=== PATIENT | male | born 1965 | race Caucasian/White ===

== ENCOUNTER 2021-12-14 15:51 | Observation (INO) ==
[2021-12-14] MEDS ORDERED: SODIUM CHLORIDE 0.9% 1000ML 1,000 ML IV ONE (16:01)
[2021-12-14] MEDS ORDERED: ACETAMINOPHEN 1,000 MG/100 ML VIAL IV STA (16:33)
--- NOTE | 2021-12-14 16:33 | Emergency Department Note ---
Impression & Plan Syncope, IgA nephropathy, Transient global amnesia, HTN (hypertension) ED Provider Note NAME: TAYA ALVAREZ AGE: 56 SEX: M ARRIVES VIA: Ambulance INFORMANT: Patient , Ems ED PROVIDER(S): Tee Johnson MD CHIEF COMPLAINT: Syncope PLAN: Disposition: Admit MEDICAL DECISION MAKING: The patient is a pleasant 56-year-old gentleman with a past medical history of hypertension, CKD/IgA nephropathy per patient report who presents to the emergen cy department via EMS for syncopal episode began shortly prior to arrival in the setting of the patient feeling unwell this afternoon with headache and lightheadedness and so he came home from work early and decided to take a rest. His reports that he took his blood pressure and it was 160/80. He took it again shortly thereafter and it was 165/85. She reports that he was recently taken off lisinopril but did not have any other medication added and is worried because when he gets out of control blood pressure" he becomes very symptomatic. She then made the decision to call 911 and so they helped him get dressed and walked him out to the [facility] to sit on a chair but just before making it to the chair they report he lost consciousness and remained unresponsive until EMS arrived. The reports that his blood pressure at the time when he was not responding and it was in the 200s/100s. He eventually became alert. On arrival the patient is awake and alert answering questions. He reports he has no recollection of the entire day including getting up and going to work or what he did. He reports feeling okay this morning so he did go to work. His adds that the patient has had episodes like this in the past due to his blood pressure and recalls that they were told that he had "nonepileptic seizures" that were due to his high blood pressure. When I did explain what the diagnosis of nonepileptic seizures implies they did not seem aware that this was related to mood or psychogenic process and occurred with the patient necessarily being consciously aware. [facility] this particular history. On arrival patient is in no acute distress, afebrile with blood pressure 170s/100s and vital signs otherwise stable. He appears clinically dry. He has no focal neurologic deficits. He does exhibit some difficulty lifting his right leg which she reports is due to feeling achy and sore. Patient's then noted that with his prior episodes he would develop left-sided weakness. However I did clarify to her that it was his right leg that was problematic and so she admitted that she did not know what to make of that. However his difficulty appears to be more related to achiness than weakness. EKG without overt acute ischemia. Chest x-ray negative for acute cardiopulmonary process. WBC, H/H and platelets within normal limits. Chemistry without metabolic acidosis. Creatinine 1.6 within patient's prior range of values. Electrolytes without significant abnormality. LFTs are unremarkable. Troponin negative/undetectable. Covid-19 RNA, NAAT negative. CT head without contrast was negative for acute process. Upon reevaluation the patient did feel improved after IV fluid hydration and APAP. Blood pressure had also improved to the 140s/80s. Given the patient's syncopal episode with associated amnesia/question TGA they agree with plan for admission for further evaluation. Case was discussed with LOREN Preston hospitalist, who will evaluate the patient for admission. Triage Nursing notes reviewed and agree them. Prior medical records reviewed Vital Signs: reviewed and remarkable for hypertension. Differential diagnosis: Infection, dehydration, metabolic abnormality, hypo/hyperglycemia, electrolyte disturbance, anemia, hypoxia, cardiac sources, intracerebral event, toxicologic, neurologic, as well as other pathologies. ER treatment provided: See below. Diagnostics interpreted by me: ECG: Normal sinus rhythm, 63 bpm, no ectopy, no overt ST elevation or depression, QTC 4 3, QRS 102 Cardiac Monitoring: An order for continuous cardiac monitoring was placed and demonstrated normal sinus rhythm, 63 bpm, no ectopy. Laboratory studies: See below Imaging studies: See below Consultation(s): Case was discussed with LOREN Preston hospitalist, who will evaluate the patient for admission. HPI: The patient is a pleasant 56-year-old gentleman with a past medical history of hypertension, CKD/IgA nephropathy per patient report who presents to the emergency department via EMS for syncopal episode began shortly prior to arrival in the setting of the patient feeling unwell this afternoon with headache and lightheadedness and so he came home from work early and decided to take a rest. His reports that he took his blood pressure and it was 160/80. He took it again shortly thereafter and it was 165/85. She reports that he was recently taken off lisinopril but did not have any other medication added and is worried because when he gets out of control blood pressure" he becomes very symptomatic. She then made the decision to call 911 and so they helped him get dressed and walked him out to the front porch to sit on a chair but just before making it to the chair they report he lost consciousness and remained unresponsive until EMS arrived. The reports that his blood pressure at the time when he was not responding and it was in the 200s/100s. He eventually became alert. On arrival the patient is awake and alert answering questions. He reports he has no recollection of the entire day including getting up and going to work or what he did. He reports feeling okay this morning so he did go to work. His adds that the patient has had episodes like this in the past due to his blood pressure and recalls that they were told that he had "nonepileptic seizures" that were due to his high blood pressure. When I did explain what the diagnosis of nonepileptic seizures implies they did not seem aware that this was related to mood or psychogenic process and occurred with the patient necessarily being consciously aware. [facility] at this particular history. ROS: See above HPI for pertinent positives & negatives. A total of 10 systems reviewed and were otherwise negative. VITALS:See Below PHYSICAL EXAMINATION: GENERAL: Awake, alert, fatigued-appearing, in no distress HENT: Normocephalic, atraumatic. Oropharynx with dry mucous membranes and otherwise unremarkable. EYES: Normal conjunctiva. Sclera non-icteric. EOMI. No nystamgus. PEARRL. NECK: Supple. No nuchal rigidity. FROM. No JVD. RESPIRATORY: Clear to auscultation. CARDIAC: Regular rate, normal rhythm. Extremities warm and well perfused. Pulses equal. ABDOMEN: Soft, non-distended. No tenderness to palpation. No rebound or guarding. No masses. RECTAL: Deferred. MUSCULOSKELETAL: Chest examination reveals no tenderness. The back is symmetrical on inspection without obvious abnormality. There is no CVA tenderness to palpation. No joint edema. LOWER EXTREMITIES: Calves are equal size bilaterally and non-tender. No edema. No discoloration. NEURO: Normal sensorium. No sensory or motor deficits noted. 5/5 strength and SILT x 4 extremities. Cerebellar function intact including [id number], alternating palms, [id number]. SKIN: No rash or jaundice noted. 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 Other Information That Helps Us Care for You: No Feels Safe at Home: Yes Safety Concerns: Feels Safe At This Time Assistive Devices: Glasses Allergies Allergies Allergy/AdvReac Type Severity Reaction Status Date / Time No Known Allergies Allergy Unverified 12/14/21 16:25 Home Meds Home Medications Medication Instructions Recorded Confirmed amlodipine 10 mg tablet 10 mg PO DAILY 09/16/20 12/14/21 omega-3s 350 ma-[id number]-other 2 cap PO DAILY 11/03/21 12/14/21 [id number] oil 600 mg capsule (Fish Oil) Results & Data (ED) Vital Signs Vital Signs - 24 hr 12/14/21 15:39 12/14/21 16:02 12/14/21 18:06 Temperature 36.7 C Temperature Source Oral Pulse Rate 70 85 Pulse Rate [Apical] 70 66 Pulse Rhythm [Apical] Pulse Strength [Apical] Respiratory Rate 21 21 20 Respiratory Effort / Characteristics Non-Labored Respiratory Depth Normal Blood Pressure 171/113 H Blood Pressure [Right Arm] 171/113 H 153/94 H Blood Pressure Mean 132 Blood Pressure Mean [Right Arm] 132 113 Blood Pressure Position [Right Arm] Pulse Oximetry 97 100 98 Oxygen Delivery Method Room Air Room Air Sepsis Recent Fever Within 48 Hours No Sepsis New/Unexplained Change in Mental Status No Sepsis Action Taken by Nursing No Action Required 12/14/21 20:00 Temperature Temperature Source Pulse Rate Pulse Rate [Apical] 63 Pulse Rhythm [Apical] Regular Pulse Strength [Apical] Normal Respiratory Rate 16 Respiratory Effort / Characteristics Non-Labored Spontaneous Respiratory Depth Normal Blood Pressure Blood Pressure [Right Arm] 153/91 H Blood Pressure Mean Blood Pressure Mean [Right Arm] 111 Blood Pressure Position [Right Arm] Semi-fowlers Pulse Oximetry 94 Oxygen Delivery Method Room Air Sepsis Recent Fever Within 48 Hours Sepsis New/Unexplained Change in Mental Status Sepsis Action Taken by Nursing Laboratory Data Attestation: I reviewed the patient's lab results. Result diagrams: 12/14/21 16:28 12/14/21 16:28 Lab Results 12/14/21 12/14/21 12/14/21 Range/Units 16:28 16:28 16:43 WBC 7.79 (4.8-10.8) K/uL RBC 5.34 (4.7-6.1) M/uL Hgb 15.7 (14.0-18.0) g/dL Hct 46.0 (42-52) % MCV 86.1 (80-100) fL MCH 29.4 (25-34) pg MCHC 34.1 (32-36) g/dL RDW Std Deviation 43.0 (36.4-46.3) fL RDW Coeff of Dharmesh 13.8 (11.5-14.5) % Plt Count 316 (130-400) K/uL MPV 9.6 (7.4-10.4) fL Immature Gran % (Auto) 1.2 % Neut % (Auto) 59.5 % Lymph % (Auto) 23.5 % [place] % (Auto) 12.1 % Eos % (Auto) 3.2 % Baso % (Auto) 0.5 % Neut # (Auto) 4.64 (1.4-6.5) K/uL Lymph # (Auto) 1.83 (1.2-3.4) K/uL [place] # (Auto) 0.94 H (0.11-0.59) K/uL Eos # (Auto) 0.25 (0-0.5) K/uL Baso # (Auto) 0.04 (0-0.2) K/uL Immature Gran # (Auto) 0.09 H (0.00-0.02) K/uL Sodium 137 (136-145) mmol/L Potassium 3.9 (3.5-5.1) mmol/L Chloride 105 (98-107) mmol/L Carbon Dioxide 24 (21-32) mmol/L Anion Gap 8 (3-11) BUN 34 H (6-23) mg/dl Creatinine 1.65 H (0.6-1.4) mg/dl Est Cr Clr Drug Dosing 48.5 ml/min Est GFR ( Amer) 52.3 ml/min Est GFR (Non-Af Amer) 45.1 ml/min BUN/Creatinine Ratio 20.6 H (10-20) Glucose 81 (70-99(Fasting)) mg/dl Calcium 9.0 (8.5-10.1) mg/dl Phosphorus 2.3 L (2.5-4.9) mg/dl Magnesium 2.1 (1.7-2.4) mg/dl Total Bilirubin 0.4 (0.2-1.0) mg/dl AST 33 (13-39) U/L ALT 38 (7-52) U/L Alkaline Phosphatase 95 (34-104) U/L Troponin I < 0.03 (0-0.04) ng/ml Total Protein 7.9 (6.0-8.3) gm/dl Albumin 4.2 (3.4-5.0) gm/dl Globulin 3.7 (2.5-4.0) gm/dl Albumin/Globulin Ratio 1.1 (0.9-2) Urine Color Urine Appearance (Clear) Urine pH (4.5-7.5) Ur Specific [place] (1.000-1.030) Urine Protein (Negative) Urine Glucose (UA) (Negative) Urine Ketones (Negative) Urine Blood (Negative) Urine Nitrite (Negative) Urine Bilirubin (Negative) Urine Urobilinogen (Negative) Ur Leukocyte Esterase (Negative) Urine WBC (Auto) (0-5) /hpf Urine RBC (Auto) (0-4) /hpf U Hyaline Cast (Auto) (0-5) /lpf U Epithel Cells (Auto) (0-5) /lpf Urine Bacteria (Auto) (Negative) Ur Random Creatinine mg/dl U Random Total Protein (0-11.9) mg/dl Protein/Creatinin Ratio (0-0.2) SARS-CoV-2, RNA, NAAT NEGATIVE (NEGATIVE) 12/14/21 12/14/21 Range/Units 16:43 16:43 WBC (4.8-10.8) K/uL RBC (4.7-6.1) M/uL Hgb (14.0-18.0) g/dL Hct (42-52) % MCV (80-100) fL MCH (25-34) pg MCHC (32-36) g/dL RDW Std Deviation (36.4-46.3) fL RDW Coeff of Dharmesh (11.5-14.5) % Plt Count (130-400) K/uL MPV (7.4-10.4) fL Immature Gran % (Auto) % Neut % (Auto) % Lymph % (Auto) % [place] % (Auto) % Eos % (Auto) % Baso % (Auto) % Neut # (Auto) (1.4-6.5) K/uL Lymph # (Auto) (1.2-3.4) K/uL [place] # (Auto) (0.11-0.59) K/uL Eos # (Auto) (0-0.5) K/uL Baso # (Auto) (0-0.2) K/uL Immature Gran # (Auto) (0.00-0.02) K/uL Sodium (136-145) mmol/L Potassium (3.5-5.1) mmol/L Chloride (98-107) mmol/L Carbon Dioxide (21-32) mmol/L Anion Gap (3-11) BUN (6-23) mg/dl Creatinine (0.6-1.4) mg/dl Est Cr Clr Drug Dosing ml/min Est GFR ( Amer) ml/min Est GFR (Non-Af Amer) ml/min BUN/Creatinine Ratio (10-20) Glucose (70-99(Fasting)) mg/dl Calcium (8.5-10.1) mg/dl Phosphorus (2.5-4.9) mg/dl Magnesium (1.7-2.4) mg/dl Total Bilirubin (0.2-1.0) mg/dl AST (13-39) U/L ALT (7-52) U/L Alkaline Phosphatase (34-104) U/L Troponin I (0-0.04) ng/ml Total Protein (6.0-8.3) gm/dl Albumin (3.4-5.0) gm/dl Globulin (2.5-4.0) gm/dl Albumin/Globulin Ratio (0.9-2) Urine Color Yellow Urine Appearance Clear (Clear) Urine pH 6.0 (4.5-7.5) Ur Specific [place] 1.015 (1.000-1.030) Urine Protein 2+ H (Negative) Urine Glucose (UA) Negative (Negative) Urine Ketones Negative (Negative) Urine Blood Negative (Negative) Urine Nitrite Negative (Negative) Urine Bilirubin Negative (Negative) Urine Urobilinogen Negative (Negative) Ur Leukocyte Esterase Negative (Negative) Urine WBC (Auto) 0 (0-5) /hpf Urine RBC (Auto) 0-4 (0-4) /hpf U Hyaline Cast (Auto) 0 (0-5) /lpf U Epithel Cells (Auto) 0-5 (0-5) /lpf Urine Bacteria (Auto) Negative (Negative) Ur Random Creatinine 67.7 mg/dl U Random Total Protein 110.4 H (0-11.9) mg/dl Protein/Creatinin Ratio 1.6 H (0-0.2) SARS-CoV-2, RNA, NAAT (NEGATIVE) Administered Medications Olmesartan (Olmesartan Medoxomil 20 Mg Tab) 20 mg PO QAM NAHID Stop: 01/13/22 21:38 Last Admin: 12/14/21 22:12 Dose: 20 mg Documented by: [id number] Discontinued Medications Gadobutrol (Gadobutrol 65ml Vial) 9.5 ml IV ONCE ONE Stop: 12/14/21 23:37 Last Admin: 12/14/21 23:36 Dose: 9.5 ml Documented by: [id number] Sodium Chloride (Nss 1000ml) 1,000 mls @ 999 mls/hr IV .Q1H1M ONE Stop: 12/14/21 17:01 Last Infusion: 12/14/21 18:42 Dose: 0 mls/hr Documented by: [id number] Admin: 12/14/21 16:45 Dose: 999 mls/hr Documented by: [id number] Acetaminophen (Ofirmev) 1,000 mg in 100 mls @ 400 mls/hr IV NOW STA Stop: 12/14/21 16:47 Last Infusion: 12/14/21 18:42 Dose: 0 mls/hr Documented by: [id number] Admin: 12/14/21 16:45 Dose: 400 mls/hr Documented by: [id number] Imaging Data Radiologist's Impression: Chest X-Ray 12/14/21 16:02 XR chest 1V portable CLINICAL HISTORY: Atypical chest pain TECHNIQUE: Single frontal radiograph of the chest was obtained. Comparison: None available at the time of this dictation. FINDINGS: No lines and tubes are seen. The cardiomediastinal silhouette is normal. The lungs are clear. No evidence of pleural effusion or pneumothorax. IMPRESSION: No acute chest disease. ACT 112: Negative or not required by law. Electronically signed by: Flaco Moses M.D. 12/14/2021 4:[address] 12/14/21 16:33 CT OF THE HEAD WITHOUT CONTRAST CLINICAL HISTORY: syncope, TGA COMPARISON STUDY: Head CT April 30, 2018. CT DOSE: 638.56 mGycm TECHNIQUE: Helical axial images of the head were obtained without IV contrast. Automated exposure control was utilized for the study. A dose lowering technique was utilized adhering to the principles of ALARA. FINDINGS: No acute intracranial hemorrhage, midline shift or mass effect is present. The ventricular system is unremarkable. The basal cisterns are patent. No extra-axial collections are present. There are no findings to suggest acute dural sinus thrombosis or acute territorial infarct. No significant calvarial abnormalities are present. There is mild ethmoid sinus mucosal thickening. IMPRESSION: No acute intracranial findings. ACT 112: Negative or not required by law. Electronically signed by: Adolfo Aponte M.D. 12/14/2021 6:40 PM Discharge Plan Visit Data Chief Complaint: Syncope ED Provider: Tee Johnson Discharge Problem: Syncope, IgA nephropathy, Transient global amnesia, HTN (hypertension) Patient Disposition: Admitted As Inpatient Discharge Instructions Interventions: ED Discharge Assessment Last Done: 12/14/21 21:05 Discharge Problem: Syncope Qualifiers: Syncope type: unspecified Qualified Code(s): R55 - Syncope and collapse HTN (hypertension) Qualifiers: Hypertension type: unspecified Qualified Code(s): I10 - Essential (primary) hypertension
--- NOTE | 2021-12-14 16:39 | XRay Report ---
XR chest 1V portable CLINICAL HISTORY: Atypical chest pain TECHNIQUE: Single frontal radiograph of the chest was obtained. Comparison: None available at the time of this dictation. FINDINGS: No lines and tubes are seen. The cardiomediastinal silhouette is normal. The lungs are clear. No evid ence of pleural effusion or pneumothorax. IMPRESSION: No acute chest disease. ACT 112: Negative or not required by law. Electronically signed by: Flcao Moses M.D. 12/14/2021 4:37 PM
[2021-12-14 16:41] LABS: Basophils # (auto) 0.04 K/uL (0-0.2); Basophils % (auto) 0.5 %; Eosinophils # (auto) 0.25 K/uL (0-0.5); Eosinophils % (auto) 3.2 %; Hemoglobin 15.7 g/dL (14.0-18.0); Immature Granulocytes # (auto) 0.09 K/uL (0.00-0.02); Immature Granulocytes % (auto) 1.2 %; Lymphocytes # (auto) 1.83 K/uL (1.2-3.4); Lymphocytes % (auto) 23.5 %; Mean Corpuscular Hemoglobin 29.4 pg (25-34); Mean Corpuscular Hgb Conc 34.1 g/dL (32-36); Mean Corpuscular Volume 86.1 fL (80-100); Mean Platelet Volume 9.6 fL (7.4-10.4); Monocytes # (auto) 0.94 K/uL (0.11-0.59); Monocytes % (auto) 12.1 %; Neutrophils # (auto) 4.64 K/uL (1.4-6.5); Neutrophils % (auto) 59.5 %; Platelet Count 316 K/uL (130-400); RDW Coefficient of Variation 13.8 % (11.5-14.5); Red Blood Count 5.34 M/uL (4.7-6.1); White Blood Count 7.79 K/uL (4.8-10.8)
[2021-12-14 17:06] LABS: Troponin I < 0.03 ng/ml (0-0.04)
[2021-12-14 17:11] LABS: Alanine Aminotransferase 38 U/L (7-52); Albumin Globulin Ratio 1.1 (0.9-2); Albumin Level 4.2 gm/dl (3.4-5.0); Alkaline Phosphatase 95 U/L (34-104); Anion Gap 8 (3-11); Aspartate Aminotransferase 33 U/L (13-39); BUN Creatinine Ratio 20.6 (10-20); Bilirubin,Total 0.4 mg/dl (0.2-1.0); Blood Urea Nitrogen 34 mg/dl (6-23); Carbon Dioxide 24 mmol/L (21-32); Chloride 105 mmol/L (98-107); Creatinine Clr Calc Pharmacy 48.5 ml/min; Est GFR (African American) 52.3 ml/min; Est GFR (Non-African American) 45.1 ml/min; Globulin 3.7 gm/dl (2.5-4.0); Glucose 81 mg/dl (70-99(Fasting)); Magnesium 2.1 mg/dl (1.7-2.4); Phosphorus 2.3 mg/dl (2.5-4.9); Potassium 3.9 mmol/L (3.5-5.1); Sodium 137 mmol/L (136-145); Total Protein 7.9 gm/dl (6.0-8.3)
--- NOTE | 2021-12-14 18:41 | CT Scan Report ---
CT OF THE HEAD WITHOUT CONTRAST CLINICAL HISTORY: syncope, TGA COMPARISON STUDY: Head CT April 30, 2018. CT DOSE: 638.56 mGycm TECHNIQUE: Helical axial images of the head were obtained without IV contrast. Automated exposure con trol was utilized for the study. A dose lowering technique was utilized adhering to the principles o f ALARA. FINDINGS: No acute intracranial hemorrhage, midline shift or mass effect is present. The ventricular system is unremarkable. The basal cisterns are patent. No extra-axial collections are present. There are no findings to suggest acute dural sinus thrombosis or acute territorial infarct. No significant calvarial abnormalities are present. There is mild ethmoid sinus mucosal thickening. IMPRESSION: No acute intracranial findings. ACT 112: Negative or not required by law. Electronically signed by: Adolfo Aponte M.D. 12/14/2021 6:40 PM
--- NOTE | 2021-12-14 20:02 | History & Physical Report ---
Date of Service December 14, 2021 Assessment & Plan (1) Syncope: Plan: 56yo male with history of HTN, IgA nephropathy and CKD presenting with syncope, TGA and elevated blood pressures. Patient reports a syncopal event prior to arrival, thought to be secondary to his elevated blood pressure. Hypertensive in the ER, otherwise HD stable. EKG is unremarkable. No underlying heart disease. Question of "non-epileptic seizures" associated with elevated blood pressures in the past - history should be clarified with patient and spouse if able. Does not necessarily mean psychogenic nonepileptic seizures. Question if patient had something like PRES or seizure-like activity with elevated blood pressure in the past. Patient seems to be very sensitive to elevated blood pressure numbers. He is anxious about his values as well. Recently taken off Lisinopril. Given history of IgA nephropathy with proteinuria would benefit from treatment with TASIA-inhibitor or ARB if tolerated. Neurologically intact, however, patient still states that his head feels a bit "muffled". Question seizure rather than syncopal event. Patient is low risk for 30-day serious ADR from syncope based on Hungarian Syncope Risk Score (Score of 0) therefore does not need additional workup specifically for syncope at this time. -Admit to medical with telemetry -Neuro checks with GCS q4 (2) Transient global amnesia: Plan: Patient does not recall the events of today. ?Transient global amnesia - possibly post-ictal. 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 This resulted in a concussion and amnesia. He was unable to tell me of prior episodes that may have been associated with elevated blood pressure. Possibly post ictal phenomenon Neurological exam is within normal limits -Neuro checks q 4 -Check MRI Brain (3) HTN (hypertension): Plan: Patient with elevated blood pressure. As above, was previously on Lisinopril which was discontinued secondary to hyperkalemia of 6.2. Question of seizure or syncope secondary to elevated blood pressure -Continue Amlodipine for blood pressure as well as IgA nephropathy -Will initiate Olmesartan 20mg daily - 1st dose now. Less hyperkalemia associated with ARBs -Patient should have his labs repeated outpatient to ensure stable renal function and K -Clonidine 0.1mg po QID as needed for blood pressure >180/110 (4) IgA nephropathy: Plan: Stable renal function -Continue Amlodipine -Olmesartan as above -Check urine Protein and Cr -Patient has an appointment with Nephrology on 01/30/22 Plan: F/E/N - heplock. Electrolytes WNL. Low Na/Heart healthy diet as tolerated Ppx - low risk for DVT Code - Full per discussion with patient Dispo - Observation to medical with telemetry History of Present Illness Chief Complaint: syncope, transient global amnesia Primary Care Provider: Joselyn Vega PA-C Jeff Mae is a 56yo male with history of IgA Nephropathy and hypertension presenting after a syncopal episode as well as transient global amnesia. Patient states he was in his usual state of health today until this afternoon when he developed dull headache and lightheadedness causing him to come home from work early to rest. Blood pressure at that time elevated at 160/80, repeat was 165/85. They decided to call 911. Patient was walking out to the front [facility] to wait for the ambulance when he lost consciousness. He remained unresponsive until EMS arrived. Initial BP by EMS was 200s/100s. Patient slowly regained consciousness en route to [facility] but had no recollection of the day's events. He states that he clearly remembers yesterday but does not recall anything from today. He states that his head feels "muffled". reported to the ER attending that patient had an episode similar to this where he lost consciousness with elevated blood pressure and was told that he has "nonepileptic seizures" that were due to high blood pressure. Patient reports that his blood pressure is typically well controlled at home, 120's/80's. He was previously on Amlodipine as well as Lisinopril. However, he had an elevated potassium to 6.2 on bloodwork therefore his Lisinopril was discontinued approximately 2 weeks ago. Patient has been closely monitoring his blood pressure since and states it has been controlled until today. He has IgA nephropathy. Has an appointment with Nephrology on 01/30/22 Allergies Allergy/AdvReac Type Severity Reaction Status Date / Time No Known Allergies Allergy Unverified 12/14/21 16:25 Home Medications Medication Instructions Recorded Confirmed Type amlodipine 10 mg tablet 10 mg PO DAILY 09/16/20 12/14/21 History omega-3s 350 el-tsf-ifi-other 2 cap PO DAILY 11/03/21 12/14/21 History [id number] oil 600 mg capsule (Fish Oil) Past Med/Surg History Medical History (Updated 12/15/21 @ 00:08 by Marybeth Alcala DO) Chopra's disease HTN (hypertension) IgA nephropathy Surgical History H/O hernia repair S/P appendectomy Status post biopsy of kidney Social History Smoking Status: Never smoker Hx Alcohol Use: No Hx Substance Use: No Preferred Language: Yakut Communication Ability: Effective Clerical Administrative Assistant Required: No marital status: Current Living Situation: Spouse current occupational status: employed 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 Other Information That Helps Us Care for You: No Feels Safe at Home: Yes Safety Concerns: Feels Safe At This Time Assistive Devices: Glasses Review of Systems Review of Systems: All systems reviewed & are unremarkable except as noted in HPI & below Physical Exam Physical Exam: General: patient resting comfortably, NAD, non-toxic in appearance, AA&O x 4 Skin: warm, dry, intact, no rashes or lesions HEENT: NC/AT, PERRL, EOMI, anicteric sclera, conjunctiva without injection, external ear normal to inspection and nontender, nares patent, moist mucus membranes, dentition intact, no oropharyngeal lesions, neck supple, trachea midline, no LAD, no thyromegaly, no JVD Heart: +S1/S2, regular, no m/r/g Lungs: equal air entry bilaterally, no rales/rhonchi/wheezes Abd: +BS, soft, NT/ND, no masses/organomegaly/ascites Ext: warm, 2+ pulses in UE/LE bilaterally, no clubbing/cyanosis, trace edema of bilateral LE Neuro: AA&O x 4, speech clear and appropriate, no facial droop, CN II - XII grossly intact, sensation to light touch intact UE/LE bilaterally, MS 5/5 in UE/LE bilaterally, [id number] testing normal, gait not assessed Results & Data Results & Data ([place]) Vital Signs (Past 12 Hours) Vital Signs Temp Pulse Pulse Resp BP BP Pulse Ox 12/14/21 18:06 66 20 153/94 H 98 12/14/21 16:02 85 21 100 12/14/21 15:39 36.7 C 70 70 21 171/113 H 171/113 H 97 Laboratory Results Laboratory Results WBC 7.79 K/uL (4.8-10.8) 12/14/21 16:28 RBC 5.34 M/uL (4.7-6.1) 12/14/21 16:28 Hgb 15.7 g/dL (14.0-18.0) 12/14/21 16:28 Hct 46.0 % (42-52) 12/14/21 16:28 MCV 86.1 fL (80-100) 12/14/21 16:28 MCH 29.4 pg (25-34) 12/14/21 16:28 MCHC 34.1 g/dL (32-36) 12/14/21 16:28 RDW Std Deviation 43.0 fL (36.4-46.3) 12/14/21 16:28 RDW Coeff of Dharmesh 13.8 % (11.5-14.5) 12/14/21 16:28 Plt Count 316 K/uL (130-400) 12/14/21 16:28 MPV 9.6 fL (7.4-10.4) 12/14/21 16:28 Immature Gran % (Auto) 1.2 % 12/14/21 16:28 Neut % (Auto) 59.5 % 12/14/21 16:28 Lymph % (Auto) 23.5 % 12/14/21 16:28 [place] % (Auto) 12.1 % 12/14/21 16:28 Eos % (Auto) 3.2 % 12/14/21 16:28 Baso % (Auto) 0.5 % 12/14/21 16:28 Neut # (Auto) 4.64 K/uL (1.4-6.5) 12/14/21 16:28 Lymph # (Auto) 1.83 K/uL (1.2-3.4) 12/14/21 16:28 [place] # (Auto) 0.94 K/uL (0.11-0.59) H 12/14/21 16:28 Eos # (Auto) 0.25 K/uL (0-0.5) 12/14/21 16:28 Baso # (Auto) 0.04 K/uL (0-0.2) 12/14/21 16:28 Immature Gran # (Auto) 0.09 K/uL (0.00-0.02) H 12/14/21 16:28 Sodium 137 mmol/L (136-145) 12/14/21 16: Potassium 3.9 mmol/L (3.5-5.1) 12/14/21 16: Chloride 105 mmol/L (98-107) 12/14/21 16: Carbon Dioxide 24 mmol/L (21-32) 12/14/21 16: Anion Gap 8 (3-11) 12/14/21 16: BUN 34 mg/dl (6-23) H 12/14/21 16: Creatinine 1.65 mg/dl (0.6-1.4) H 12/14/21 16: Est Cr Clr Drug Dosing 48.5 ml/min 12/14/21 16: Est GFR ( Amer) 52.3 ml/min 12/14/21 16: Est GFR (Non-Af Amer) 45.1 ml/min 12/14/21 16: BUN/Creatinine Ratio 20.6 (10-20) H 12/14/21: Glucose 81 mg/dl (70-99(Fasting)) 12/14/21 16: Calcium 9.0 mg/dl (8.5-10.1) 12/14/21: Phosphorus 2.3 mg/dl (2.5-4.9) L 12/14/21: Magnesium 2.1 mg/dl (1.7-2.4) 12/14/21 16: Total Bilirubin 0.4 mg/dl (0.2-1.0) 12/14/21 16: AST 33 U/L (13-39) 12/14/21 16: ALT 38 U/L (7-52) 12/14/21 16: Alkaline Phosphatase 95 U/L (34-104) 12/14/21 16: Troponin I < 0.03 ng/ml (0-0.04) 12/14/21 16: Total Protein 7.9 gm/dl (6.0-8.3) 12/14/21 16:28 Albumin 4.2 gm/dl (3.4-5.0) 12/14/21 16:28 Globulin 3.7 gm/dl (2.5-4.0) 12/14/21 16:28 Albumin/Globulin Ratio 1.1 (0.9-2) 12/14/21 16:28 Urine Color Yellow 12/14/21 16:43 Urine Appearance Clear (Clear) 12/14/21 16:43 Urine pH 6.0 (4.5-7.5) 12/14/21 16:43 Ur Specific [place] 1.015 (1.000-1.030) 12/14/21 16:43 Urine Protein 2+ (Negative) H 12/14/21 16:43 Urine Glucose (UA) Negative (Negative) 12/14/21 16:43 Urine Ketones Negative (Negative) 12/14/21 16:43 Urine Blood Negative (Negative) 12/14/21 16:43 Urine Nitrite Negative (Negative) 12/14/21 16:43 Urine Bilirubin Negative (Negative) 12/14/21 16:43 Urine Urobilinogen Negative (Negative) 12/14/21 16:43 Ur Leukocyte Esterase Negative (Negative) 12/14/21 16:43 Urine WBC (Auto) 0 /hpf (0-5) 12/14/21 16:43 Urine RBC (Auto) 0-4 /hpf (0-4) 12/14/21 16:43 U Hyaline Cast (Auto) 0 /lpf (0-5) 12/14/21 16:43 U Epithel Cells (Auto) 0-5 /lpf (0-5) 12/14/21 16:43 Urine Bacteria (Auto) Negative (Negative) 12/14/21 16:43 Ur Random Creatinine 67.7 mg/dl 12/14/21 16:43 U Random Total Protein 110.4 mg/dl (0-11.9) H 12/14/21 16:43 Protein/Creatinin Ratio 1.6 (0-0.2) H 12/14/21 16:43 SARS-CoV-2, RNA, NAAT NEGATIVE (NEGATIVE) 12/14/21 16:43 Impressions Chest X-Ray 12/14/21 16:02 XR chest 1V portable CLINICAL HISTORY: Atypical chest pain TECHNIQUE: Single frontal radiograph of the chest was obtained. Comparison: None available at the time of this dictation. FINDINGS: No lines and tubes are seen. The cardiomediastinal silhouette is normal. The lungs are clear. No evidence of pleural effusion or pneumothorax. IMPRESSION: No acute chest disease. ACT 112: Negative or not required by law. Electronically signed by: Flaco Moses M.D. 12/14/2021 4:[address] 12/14/21 16:33 CT OF THE HEAD WITHOUT CONTRAST CLINICAL HISTORY: syncope, TGA COMPARISON STUDY: Head CT April 30, 2018. CT DOSE: 638.56 mGycm TECHNIQUE: Helical axial images of the head were obtained without IV contrast. Automated exposure control was utilized for the study. A dose lowering technique was utilized adhering to the principles of ALARA. FINDINGS: No acute intracranial hemorrhage, midline shift or mass effect is present. The ventricular system is unremarkable. The basal cisterns are patent. No extra-axial collections are present. There are no findings to suggest acute dural sinus thrombosis or acute territorial infarct. No significant calvarial abnormalities are present. There is mild ethmoid sinus mucosal thickening. IMPRESSION: No acute intracranial findings. ACT 112: Negative or not required by law. Electronically signed by: Adolfo Aponte M.D. 12/14/2021 6:40 PM ECG Additional Comments: NSR at 63, normal axis, ZE=365, SQL=257, FUk=694, no acute ischemic changes Code Status & VTE Plan VTE Prophylaxis Plan VTE Prophylaxis will be ordered: No PG Care Time/CCT Total # of Minutes Spent Total Time Spent with Patient: Total time spent is greater than 50% in coordination of care (as documented) at patient's floor/unit and/or counseling patient: Coding Level of Care Code INT OBSERVATION CARE 70M LVL 3 Diagnoses HTN (hypertension) I10 IgA nephropathy N02.8 Transient global amnesia G45.4 Syncope R55
[2021-12-14] MEDS ORDERED: ONDANSETRON INJ 2 MG/ML 2 ML VIAL IV PRN (21:39)
[2021-12-14] MEDS ORDERED: ACETAMINOPHEN 325 MG TAB PO PRN (21:39)
[2021-12-14] MEDS: OLMESARTAN MEDOXOMIL 20 MG TAB PO SCH (22:12)
[2021-12-14 22:52] LABS: Appearance Urine Clear (Clear); Bacteria Urine Automated Negative (Negative); Bilirubin Urine Negative (Negative); Blood Urine Negative (Negative); Cast Urine Automated 0 /lpf (0-5); Color Urine Yellow; Epithelial Cell Urine Auto 0-5 /lpf (0-5); Glucose Urine UA Negative (Negative); Ketones Urine Negative (Negative); Leukocyte Esterase Urine Negative (Negative); Nitrite Urine Negative (Negative); Protein Urine 2+ (Negative); RBC Urine Automated 0-4 /hpf (0-4); Specific Gravity Urine 1.015 (1.000-1.030); Urobilinogen Urine Negative (Negative); WBC Urine Automated 0 /hpf (0-5)
[2021-12-14 23:36] LABS: Creatinine Urine Random 67.7 mg/dl; Protein Creatinine Ratio Urine 1.6 (0-0.2); Total Protein Urine Random 110.4 mg/dl (0-11.9)
[2021-12-14] MEDS ORDERED: GADOBUTROL 65ML VIAL IV ONE (23:36)
[2021-12-15] MEDS ORDERED: cloNIDine HCL 0.1 MG TAB PO PRN (00:28)
--- NOTE | 2021-12-15 07:19 | Electrocardiogram Report ---
Test Reason : Blood Pressure : / mmHG Vent. Rate : 063 BPM Atrial Rate : 063 BPM P-R Int : 142 ms QRS Dur : 102 ms QT Int : 394 ms P-R-T Axes : 022 015 028 degrees QTc Int : 403 ms Poor data quality, interpretation may be adversely affected Normal sinus rhythm Normal ECG When compared with ECG of 30-APR-2018 14:49, No significant change was found Confirmed by Duke Shay ([id number]) on 12/15/2021 7:18:59 AM Referred By: Confirmed By:Duke Shay
--- NOTE | 2021-12-15 07:22 | Magnetic Resonance Report ---
MRI OF THE BRAIN COMBO CLINICAL HISTORY: Transient global amnesia. COMPARISON STUDY: CT of the brain dated 12/14/2021. TECHNIQUE: MRI of the brain was performed utilizing various T1 and T2-weighted sequences in the axial , sagittal, and coronal planes. Contrast-enhanced sequences were acquired following the administratio n of 9.5 cc of Gadavist. FINDINGS: Brain parenchyma: The brain parenchyma is normal in appearance. There is no hemorrhage or mass effect . There is no restricted diffusion to suggest acute ischemia. No enhancing mass lesion is identified on the postcontrast images. Perez-white matter differentiation is preserved. No extra-axial fluid sarita ection is seen. The cerebellar tonsils are normal in configuration. Ventricles, sulci, and cisterns: Normal in configuration. Pituitary and sella: Unremarkable. Intracranial vasculature: Normal flow voids are maintained at the skull base. Orbits: The bony orbits are grossly intact. Orbital contents are normal in appearance. Sinuses and mastoids: There is mild mucosal thickening within the ethmoid and maxillary sinuses. Trac e mucosal thickening is noted in the frontal and sphenoid sinuses. The mastoid air cells are clear. Calvarium: Unremarkable. Cervical cord: Partially visualized cervical spinal cord is normal in morphology and signal intensity . IMPRESSION: No intracranial abnormality is identified. ACT 112: Negative or not required by law. Electronically signed by: Asa Tellez M.D. 12/15/2021 7:20 AM
[2021-12-15 08:01] LABS: Basophils # (auto) 0.04 K/uL (0-0.2); Basophils % (auto) 0.6 %; Eosinophils % (auto) 4.6 %; Hematocrit (blood only) 45.3 % (42-52); Hemoglobin 15.4 g/dL (14.0-18.0); Immature Granulocytes # (auto) 0.07 K/uL (0.00-0.02); Immature Granulocytes % (auto) 1.1 %; Lymphocytes # (auto) 1.35 K/uL (1.2-3.4); Lymphocytes % (auto) 20.7 %; Mean Corpuscular Hemoglobin 29.4 pg (25-34); Mean Corpuscular Volume 86.5 fL (80-100); Mean Platelet Volume 9.5 fL (7.4-10.4); Monocytes # (auto) 0.94 K/uL (0.11-0.59); Monocytes % (auto) 14.4 %; Neutrophils # (auto) 3.83 K/uL (1.4-6.5); Neutrophils % (auto) 58.6 %; Platelet Count 321 K/uL (130-400); RDW Coefficient of Variation 13.9 % (11.5-14.5); RDW Standard Deviation 43.6 fL (36.4-46.3); Red Blood Count 5.24 M/uL (4.7-6.1); White Blood Count 6.53 K/uL (4.8-10.8)
[2021-12-15] MEDS: OLMESARTAN MEDOXOMIL 20 MG TAB PO SCH (08:01)
[2021-12-15 08:13] LABS: BUN Creatinine Ratio 17.5 (10-20); Calcium 8.7 mg/dl (8.5-10.1); Creatinine Clr Calc Pharmacy 54.5 ml/min; Est GFR (African American) 54.2 ml/min; Est GFR (Non-African American) 46.8 ml/min; Potassium 4.5 mmol/L (3.5-5.1)
[2021-12-15] MEDS ORDERED: amLODIPine BESYLATE 5 MG TAB PO SCH (09:00)
--- NOTE | 2021-12-15 10:37 | Nephrology Consultation ---
Date of Consultation December 15, 2021 Assessment & Plan (1) IgA nephropathy: (2) Hypertensive urgency: (3) Proteinuria: (4) Syncope: 56-year-old male with history of stage IIIB CKD secondary to IgA nephropathy, b/l cr 1.6-1.8, admitted with hypertensive urgency and syncope. Has moderate degree proteinuria but no hematuria. Renal function stable, electrolyte including potassium acceptable. Blood pressure remained elevated however improve slightly since admission. Overall otherwise asymptomatic. Elevated potassium was most likely secondary to Bactrim in addition to CKD and lisinopril as potassium has always been otherwise normal. -- as he has been tolerating lisinopril for many years and it has been controlling blood pressure well, recommend going back to lisinopril 10 mg daily. -- waiting on renal artery Doppler however unlikely to have any significant renal artery stenosis as renal function stable, recent blood pressure change was most likely due to stopping TASIA-inhibitor, no significant risk for atherosclerotic disease. -- discussed about the importance of following low potassium diet, if potassium again elevated on ARB, will consider starting on [place] or locale my in order to keep on ARB for blood pressure control,CKD and proteinuria. -- monitor renal function electrolyte daily, if renal function and potassium stays stable, blood pressure improve, possibly can be discharged tomorrow. Thank you for allowing me to participate in your patient's care. It was a pleasure to see Wayne History of Present Illness Reason for Consultation: stage IIIB CKD, hypertensive urgency. Attending Physician: Ruiz Mendez MD History of Present Illness Jeff Louise is a 56-year-old gentlemen with past medical history of stage IIIB CKD secondary to IgA nephropathy, hypertension, admitted to the hospital with hypertensive urgency and syncopal episode. Nephrology consult was requested for management of hypertensive urgency in the setting of advanced CKD, recent hyperkalemia and decision regarding continuing on TASIA-inhibitor/ ARB. EMR records are reviewed in detail during patient's visit. Wayne was brought to ER yesterday after an episode of syncope. Yesterday he developed dull headache and lightheadedness and noted BP elevated at 160/80 and decided to call 911 as his BP generally well controlled.While he was waiting for EMS he lost consciousness and remained unresponsive until EMS arrived. Initial BP by EMS was 200s/100s. Patient slowly regained consciousness en route to [facility] but had no recollection of the day's events In ER his systolic blood pressure in 170s which slowly improved and this morning systolic blood pressure staying around 145 to 150s. He was on amlodipine 10 and lisinopril 10 mg daily at home. Three weeks ago lab done with AR showed potassium 6.2 and lisinopril was stopped. Pror to that he was on Bactrim for 4 weeks for Epididymitis. Since then his blood pressure has been running high although prior to that his blood pressure has been always in good control. Since admission his potassium has been normal. He was started on Olmesartan 20 mg daily yesterday and clonidine p.r.n.. Previously he never had any problem with potassium. Since then has been following low-potassium diet. No shortness of breath, chest pain, headache or visual changes. MRI brain on admission was unremarkable. He reports voiding normally. Denies taking NSAIDs use. Tries to eat healthy and follow low-salt diet. Wayne was diagnosed with IgA nephropathy in 2006 by renal biopsy after he was noted to have hypertension and microscopic hematuria and elevated creatinine. Since then his renal function seems to be staying reasonably stable, baseline creatinine has been 1.6-1.8. Urinalysis with 2+ proteinuria, no microscopic hematuria and protein creatinine ratio was 1.6. CT abdomen pelvis in November 01 showed otherwise normal size kidney with right kidney 1.6 cm exophytic cyst. He has been on lisinopril 10 mg and fish well since his diagnosis. No family history of CKD, ESRD. Nonsmoker, does not drink alcohol. Retired , currently works different job. , lives with . Originally from [place] where he had the renal biopsy and diagnosis of IgA nephropathy, moved to [place] in 2019. Hypertension for many years, previously has been well controlled until recently when lisinopril was stopped. No history of diabetes, coronary artery disease. Overall he is asymptomatic this morning but concern. Has been voiding normally. Allergies Allergy/AdvReac Type Severity Reaction Status Date / Time No Known Allergies Allergy Unverified 12/14/21 16:25 Home Medications Medication Instructions Recorded Confirmed Type amlodipine 10 mg tablet 10 mg PO DAILY 09/16/20 12/14/21 History omega-3s 350 pm-mxb-muu-other 2 cap PO DAILY 11/03/21 12/14/21 History [id number] oil 600 mg capsule (Fish Oil) Patient History Medical History (Updated 12/15/21 @ 10:26 by Bernie Davis MD) Chopra's disease HTN (hypertension) Hypertensive urgency IgA nephropathy Proteinuria Surgical History H/O hernia repair S/P appendectomy Status post biopsy of kidney Social History Smoking Status: Never smoker Hx Alcohol Use: No Hx Substance Use: No Preferred Language: Haitian Communication Ability: Effective Pot Operator Required: No marital status: Current Living Situation: Spouse 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 Physical Exam Constitutional: WD/WN, vitals as above no acute distress Eyes: + anicteric sclerae ENMT: Ears: no external ear abnormality Nose: nasal mucous membranes not dry Neck: normal visual inspection Respiratory: Auscultation: lungs clear to auscultation bilaterally Cardiovascular: Rate/Rhythm: regular rate and regular rhythm Heart Sounds: normal S1 and normal S2 Extremities: no edema Gastrointestinal (Abdomen): Inspection/Auscultation: abdomen normal to inspection and normal bowel sounds Percussion/Palpation: abdomen soft; abdomen nontender Musculoskeletal: Extremities: extremities normal to inspection Skin: no rashes Neurologic: no focal motor deficits Psychiatric: Orientation: alert and oriented x 3 Affect: euthymic affect Results & Data ([facility]) Vital Signs (Past 12 Hours) Vital Signs Temp Pulse Pulse Resp BP Pulse Ox 12/15/21 08:23 62 12/15/21 08:06 36.4 C L 57 L 20 155/87 H 97 12/15/21 03:40 36.8 C 61 16 127/78 96 12/14/21 23:00 72 PG Care Time/CCT Total # of Minutes Spent Total Time Spent with Patient: Total time spent is greater than 50% in coordination of care (as documented) at patient's floor/unit and/or counseling patient: Coding Level of Care Code 69769 Initial Inpt Care Lvl 3 Diagnoses IgA nephropathy N02.8 Hypertensive urgency I16.0 Proteinuria R80.9 Syncope R55 Syncope type: unspecified (1) Syncope Syncope type: unspecified Qualified Code(s): R55 - Syncope and collapse
--- NOTE | 2021-12-15 11:23 | Ultrasound Report ---
US duplex renal artery CLINICAL HISTORY: CKD, hypertension COMPARISON STUDY: CT of the abdomen and pelvis November 02, 2021. TECHNIQUE: Color and duplex Doppler sonography of the abdominal aorta and bilateral renal arteries wa s performed. FINDINGS: There is no hydronephrosis. Incidental note is made of a 1.6 cm cyst within the upper pole of the right kidney. Both kidneys measure 10.2 cm in maximal sagittal dimension. Peak systolic veloci ty within the abdominal aorta was 82 cm/s. Peak systolic velocity within the right renal artery was 1 34 cm/s. Peak systolic velocity within the left renal artery was 95 cm/s. Both ureteral veins were pa tent. IMPRESSION: No sonographic evidence of renal artery stenosis. ACT 112: Negative or not required by law. Electronically signed by: Adolfo Aponte M.D. 12/15/2021 11:21 AM
[2021-12-15 12:17] VITALS: TEMP 98.4; O2SAT 96
[2021-12-15 14:02] VITALS: BP 153/91; PULSE 63
--- NOTE | 2021-12-15 15:07 | Discharge Summary ---
Date of Service December 15, 2021 Admission HPI Per Admitting Provider Jeff Mae is a 56yo male with history of IgA Nephropathy and hypertension presenting after a syncopal episode as well as transient global amnesia. Patient states he was in his usual state of health today until this afternoon when he developed dull headache and lightheadedness causing him to come home from work early to rest. Blood pressure at that time elevated at 160/80, repeat was 165/85. They decided to call 911. Patient was walking out to the front porch to wait for the ambulance when he lost consciousness. He remained unresponsive until EMS arrived. Initial BP by EMS was 200s/100s. Patient slowly regained consciousness en route to [facility] but had no recollection of the day's events. He states that he clearly remembers yesterday but does not recall anything from today. He states that his head feels "muffled". reported to the ER attending that patient had an episode similar to this where he lost consciousness with elevated blood pressure and was told that he has "nonepileptic seizures" that were due to high blood pressure. Patient reports that his blood pressure is typically well controlled at home, 120's/80's. He was previously on Amlodipine as well as Lisinopril. However, he had an elevated potassium to 6.2 on bloodwork therefore his Lisinopril was discontinued approximately 2 weeks ago. Patient has been closely monitoring his blood pressure since and states it has been controlled until today. He has IgA nephropathy. Has an appointment with Nephrology on 01/30/22 Principal Diagnosis Hypertension Syncope Discharge Exam Constitutional WD/WN, vitals as above Eyes EOM intact bilaterally; no conjunctival abnormality ENMT external ear and nose normal, oropharynx normal Neck trachea midline, no thyromegaly normal visual inspection Respiratory normal respiratory effort, lungs clear to auscultation no respiratory distress Cardiovascular RRR, no murmur, no edema Gastrointestinal (Abdomen) Inspection/Auscultation: abdomen normal to inspection; abdomen not distended Musculoskeletal no cyanosis or clubbing, extremities motor strength 5/5 Skin no rashes, warm and dry Neurologic moves all extremities and awake Psychiatric Orientation: alert, oriented to person and cooperative Discharge Data Allergies Allergy/AdvReac Type Severity Reaction Status Date / Time No Known Allergies Allergy Unverified 12/14/21 16:25 Consultations 12/14/21 18:55 ED Decision to Admit Stat 12/15/21 09:39 Consult Nephrology Routine Ordered Studies 12/14/21 16:33 CT head/brain wo con Stat 12/14/21 21:39 MR brain wo/w con Routine 12/15/21 09:30 US duplex renal artery Routine Hospital Course (1) Syncope: 56yo male with history of HTN, IgA nephropathy and CKD presenting with syncope, TGA and elevated blood pressures. Patient reports a syncopal event prior to arrival, thought to be secondary to his elevated blood pressure. Hypertensive in the ER, otherwise HD stable. EKG is unremarkable. No underlying heart disease. Neurologically intact, however, patient still states that his head feels a bit "muffled". Patient is low risk for 30-day serious ADR from syncope based on [place] Syncope Risk Score (Score of 0) therefore does not need additional workup specifically for syncope at this time. - Admit to medical with telemetry -> No events - MRI brain without any abnormalities. (2) Transient global amnesia: Patient does not recall the events of today. ?Transient global amnesia - possibly post-ictal. 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 This resulted in a concussion and amnesia. He was unable to tell me of prior episodes that may have been associated with elevated blood pressure. - Normal MRI brain as above. Still did not recall events well from yesterday, but no further amnesia going forward. (3) HTN (hypertension): Patient with elevated blood pressure. Was previously on lisinopril which was discontinued secondary to hyperkalemia of 6.2. However, he was also on Bactrim for 2 weeks from urology, so nephrology felt that lisinopril was safe. - Renal u/s on 12/15 was normal. No LORRIE. - Continue Amlodipine for blood pressure as well as IgA nephropathy - Restart lisinopril 10 mg PO HS per nephrology. (4) IgA nephropathy: Stable renal function -Continue Amlodipine - Lisinopril as above -Patient has an appointment with Nephrology on 01/30/22 -> Encouraged to keep that appointment. Total Time Total Time Spent Total Time Spent (In Minutes): 35 Discharge Plan Discharge Items Patient Disposition: Home - Self-Care Reason For Visit: TRANSIENT GLOBAL AMNESIA Discharge Diagnosis: High blood pressure and passing out Activity: Resume your previous activity Non-emergency contact: Primary Care Provider Call non-emergency contact if: your symptoms worsen Follow-up/Referrals: Joselyn Vega PA-C [Primary Care Provider] - Diet: Dialysis Renal and Heart Healthy Addtl Attending Provider Instructions: Mr. Mae, You were admitted to the hospital with high blood pressure and an episode of passing out. We think your lisinopril is a really good blood pressure medication because it is a great one for your kidney issues. We think the reason your potassium went so high is because you were also on the Bactrim which can raise potassium. Now that you are off this, we can safely restart your lisinopril. Please take your lisinopril 10 mg every evening before bedtime. When you take your medication at bed, it mirrors your usual high-low stress hormones and better controls your blood pressure. Take your next dose of lisinopril TOMORROW evening before bedtime. You do not need take a dose tonight as you had your morning medications. Please follow up with Dr. Davis at your appointment time to see how you are doing. Pending Studies at Discharge: No Stand-Alone Forms: My [facility], Smoking Cessation Medications and DC Order Prescriptions: New lisinopril 10 mg tablet 10 mg PO HS Qty: 30 RF: 0 Continued amlodipine 10 mg tablet 10 mg PO DAILY RF: 0 Fish Oil 350-600 mg Capsule 2 cap PO DAILY RF: 0 Discharge Orders: Discharge Order (Routine); Ordered 12/15/21 Ordered By: Ruiz Mendez Admission Data Admit Date/Time: 12/14/21 20:01 Attending Provider: Ruiz Mendez Admit Provider: Marybeth Alcala Primary Care Provider: Joselyn Vega Other Providers: Ruiz Mendez ; [facility] ; Bernie Davis Other Interventions: Discharge Summary Assessment (RN) Last Done: 12/15/21 14:00 Coding Level of Care Code 53122 OBS Care - Discharge Diagnoses Syncope R55 Transient global amnesia G45.4 HTN (hypertension) I10 Hypertension type: unspecified IgA nephropathy N02.8
== END 2021-12-15 15:16 | disposition home or self-care (01) ==
LOC: ED 15:51 → 2N 15:51 → SUATTDRO 20:01 → 2N 21:05

== ENCOUNTER 2025-01-17 18:19 | Inpatient (IN) ==
--- NOTE | 2025-01-17 18:27 | Emergency Department Note ---
Impression & Plan Syncope, Muscle spasms of neck, Eye muscle twitches, HTN (hypertension) ED Provider Note NAME: TAYA ALVAREZ AGE: 59 SEX: M : 1965 ARRIVES VIA: Ambulance INFORMANT: Patient ED PROVIDER(S): Jared Lemus DO CHIEF COMPLAINT: Syncope, twitching of the eyes, spasms of the neck HPI: Patient is a 59-year-old male who presents ER for syncopal episode. He has a past medical history of IgA nephropathy, TGA and stage III kidney disease who presents to the ER for syncopal episode which lasted for about 1/2-hour. Patient has been having spasms of his bilateral eyes and of his neck. He notes this has improved slightly since being seen here. He followed up with ophthalmology several times. He denies any head pain or loss of vision but notes that he is has trouble opening his eyes. No weakness or numbness in the arms or legs. No chest pain or shortness of breath. No dysuria, urgency, or frequency. No other exacerbating or remitting factors. ADDITIONAL HISTORY OBTAINED: Per HPI Chronic Medical/Social Conditions Affecting Care: Per HPI PAST MEDICAL HISTORY:See Below PAST SURGICAL HISTORY:See Below FAMILY HISTORY:See Below SOCIAL HISTORY:See Below HOME MEDICATIONS:See Below ALLERGIES:See Below VITALS:See Below PHYSICAL EXAMINATION: GENERAL: Sitting up in bed, alert, intermittent twitching of his left neck, mild distress, EYE EXAM: normal conjunctiva. PERRL and EOM's grossly intact, persistent twitching of the bilateral eyelids OROPHARYNX: no exudate, no erythema, lips, buccal mucosa, and tongue normal and mucous membranes are moist NECK: supple, no nuchal rigidity, no adenopathy, non-tender LUNGS: Clear to auscultation. Normal chest wall mechanics HEART: no murmurs, S1 normal and S2 normal ABDOMEN: abdomen soft, non-tender, normo-active bowel sounds, no masses, no rebound or guarding. BACK: Back is symmetrical on inspection and there is no deformity, no midline tenderness, no CVA tenderness. SKIN: no rashes and no bruising UPPER EXTREMITIES: upper extremities are grossly normal. LOWER EXTREMITIES: No pitting edema. NEURO EXAM: Normal sensorium, cranial nerves II-XII intact, normal speech, no weakness of arms, no weakness of legs. No drift. Unable to perform [id number]. gross sensation intact. MEDICAL DECISION MAKING: Patient is a 59-year-old male who presents ER for the above-stated complaint. IV was established blood work was obtained. Labs show no significant leukocytosis or anemia. BMP with a creatinine of 2 fairly consistent with previous. LFTs and bilirubin were unremarkable. Lipase is normal. UA was clean. Chest x-ray was negative. Patient was completely neurologically intact. With Ativan twitching his neck improved and he was able to open his eyes. Unclear the syncopal calls but did elect to discuss with the hospitalist overnight for further observation secondary to a 20 to 30-minute syncopal event. EKG was reassuring. Patient has CT done within the past week for the same symptoms. Will not repeat. No head trauma. Consults/Care Managements Discussions: Per [facility] Triage Nursing notes reviewed. Limited review of prior medical records performed Vital Signs: reviewed and remarkable for no significant abnormalities Differential diagnosis: Differential diagnosis includes etiologies such as vasovagal event, infection, hypoglycemia, electrolyte abnormalities, cardiac sources, intracerebral event, toxicologic, neurologic, as well as others were entertained. ER treatment provided: See below Diagnostics interpreted by me include EKG and cardiac monitoring as listed below: -Cardiac Monitoring: An order was placed for continuous cardiac monitoring. The monitor shows a rate of 80 with sinus rhythm. -ECG: Sinus rhythm rate 80 Normal axis No PVCs QTc 431 -Laboratory studies:Interpreted by me as stated above in MDM and shown below. Imaging studies: Xrays: As interpreted by me: Portable AP upright 1 view of the chest shows no focal infiltrate CTs show: none Procedures:none Critical Care: None Past Med/Surg History Problem List (Updated 01/17/25 @ 23:58 by Jared Lemus DO) Eye muscle twitches (Acute) Muscle spasms of neck (Acute) Recurrent episodes of unresponsiveness Spasm eyelid (Acute) Muscle spasms of neck (Acute) Medial meniscus tear Left knee pain Varicocele Lower urinary tract symptoms Gout Vitamin D deficiency Stage 3b chronic kidney disease Pelvic pain in male Proteinuria Syncope (Acute) Transient global amnesia (Acute) IgA nephropathy (Acute) Scrotal pain Testicular/scrotal pain Chopra's disease (Chronic) HTN (hypertension) (Chronic) Medical History Chopra's disease Eye inflammation bilateral eyes, [facility] [place] [facility] and "slowly getting better" GERD (gastroesophageal reflux disease) controlled, stable per pt History of anesthesia reaction difficulty waking/slow to wake up. no issues with knee arthroscopy in 2023 at [facility] History of head injury (2016) transferred to [facility], no surgery, caused dizziness for a few years after injury but not current History of syncope intermittent per patient and -last episode 07/2023-unknown cause-patient and attribute to when HTN is difficult to control History of TIA (transient ischemic attack) (2005) no deficits Hx of gout Hypertension [facility], unsure why, denies follow up IgA nephropathy Prediabetes using farxiga for kidney protection Sleep-disordered breathing snoring and occasional witnessed apneas Stage 3b chronic kidney disease follows with DR Davis Testicular pain Follows with Dr Ward and Dr Davis Surgical History H/O hernia repair bilateral History of esophagogastroduodenoscopy (EGD) Hx of colonoscopy (2021) S/P appendectomy S/P right knee arthroscopy Status post biopsy of kidney 2004 - with IgA Nephropathy Family History Other No family history of adverse response to anesthesia Social History Smoking Status: Never smoker Tobacco Type: Cigars Cigarettes Per Day: "occasionally has a cigar" - advised on npo policy; Second Hand Exposure: No; Do You Dip or Chew Tobacco: No; Hx Alcohol Use: Yes Alcohol type: wine Hx Substance Use: No Preferred Language: Angolan Communication Ability: Effective Visual Impairment: No Limitations Hearing Ability: Normal [place] Gauger Required: No Beliefs That Will Affect Care: None marital status: Current Living Situation: Spouse and Family current occupational status: employed 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 Other Information That Helps Us Care for You: No Feels Safe at Home: Yes Safety Concerns: Feels Safe At This Time Diet: regular caffeine: Yes Physical Activity Frequency: Does not Exercise Seatbelt Use: always Do you think of yourself as: straight/heterosexual Gender Identity: Male Assistive Devices: Hospital Bed Allergies Allergies Allergy/AdvReac Type Severity Reaction Status Date / Time NSAIDS (Non-Steroidal AdvReac Intermediate Due to Verified 01/17/25 19:02 Anti-Inflamma patient Kidney disease- not supposed to take Home Meds Home Medications Medication Instructions Recorded Confirmed amitriptyline 10 mg tablet 10 mg PO HS 12/06/22 01/17/25 famotidine 20 mg tablet 20 mg PO HS 02/06/24 01/17/25 clonidine HCl 0.1 mg tablet 0.1 mg PO QAM 02/11/24 01/17/25 cholecalciferol (vitamin D3) 25 50 mcg PO QAM 03/20/24 01/17/25 mcg (1,000 unit) capsule (Vitamin D3) amlodipine 5 mg tablet 5 mg PO QPM 11/18/24 01/17/25 calcium 600 mg (as 1 tab PO QAM 12/22/24 01/17/25 carbonate)-vitamin D3 5 mcg (200 unit) tablet dapagliflozin propanediol 10 mg 10 mg PO QAM 12/22/24 01/17/25 tablet (Farxiga) lisinopril 40 mg tablet (Zestril) 40 mg PO QAM 12/22/24 01/17/25 omega-3 fatty acids 1,000 mg 2,000 mg PO BID 01/17/25 01/17/25 capsule Previous Rx's Medication Instructions Recorded ondansetron 4 mg disintegrating 4 mg PO Q6H PRN nausea and 03/20/24 tablet vomiting #10 tabs furosemide 20 mg tablet 20 mg PO Q OTHER DAY #17 tabs 11/10/24 allopurinol 300 mg tablet 300 mg PO QAM #90 tabs 01/05/25 diazepam 2 mg tablet (Valium) 2 mg PO BID PRN anxiety #10 tabs 01/09/25 Results & Data (ED) Vital Signs Vital Signs - 24 hr 01/17/25 18:26 01/17/25 18:26 01/17/25 18:29 Temperature 36.9 C Temperature Source Oral Pulse Rate 79 83 Pulse Rate [Right Finger] Pulse Rate from SpO2 Sensor Pulse Rhythm Regular Pulse Strength Normal Respiratory Rate 19 Respiratory Effort / Characteristics Non-Labored Spontaneous Respiratory Depth Normal Respiratory Pattern Regular Blood Pressure 144/87 H Blood Pressure [Right Arm] Blood Pressure Mean 106 Blood Pressure Mean [Right Arm] Blood Pressure Position Lying Blood Pressure Position [Right Arm] Pulse Oximetry 99 99 Oxygen Delivery Method Room Air Room Air Sepsis Recent Fever Within 48 Hours No Sepsis New/Unexplained Change in Mental Status No Sepsis Action Taken by Nursing No Action Required 01/17/25 18:30 01/17/25 18:30 01/17/25 18:30 Temperature Temperature Source Pulse Rate Pulse Rate [Right Finger] Pulse Rate from SpO2 Sensor Pulse Rhythm Pulse Strength Respiratory Rate Respiratory Effort / Characteristics Respiratory Depth Respiratory Pattern Blood Pressure 135/89 135/89 135/89 Blood Pressure [Right Arm] Blood Pressure Mean 104 104 104 Blood Pressure Mean [Right Arm] Blood Pressure Position Blood Pressure Position [Right Arm] Pulse Oximetry Oxygen Delivery Method Sepsis Recent Fever Within 48 Hours Sepsis New/Unexplained Change in Mental Status Sepsis Action Taken by Nursing 01/17/25 18:30 01/17/25 18:31 01/17/25 18:51 Temperature Temperature Source Pulse Rate 87 90 Pulse Rate [Right Finger] Pulse Rate from SpO2 Sensor 86 90 Pulse Rhythm Pulse Strength Respiratory Rate 18 16 Respiratory Effort / Characteristics Respiratory Depth Respiratory Pattern Blood Pressure Blood Pressure [Right Arm] Blood Pressure Mean Blood Pressure Mean [Right Arm] Blood Pressure Position Blood Pressure Position [Right Arm] Pulse Oximetry 94 94 Oxygen Delivery Method Room Air Sepsis Recent Fever Within 48 Hours Sepsis New/Unexplained Change in Mental Status Sepsis Action Taken by Nursing 01/17/25 19:00 01/17/25 19:00 01/17/25 19:12 Temperature 36.6 C Temperature Source Temporal Artery Scan Pulse Rate 91 H Pulse Rate [Right Finger] 89 Pulse Rate from SpO2 Sensor 91 H Pulse Rhythm Pulse Strength Respiratory Rate 23 18 Respiratory Effort / Characteristics Non-Labored Spontaneous Respiratory Depth Normal Respiratory Pattern Regular Blood Pressure 149/93 H Blood Pressure [Right Arm] 149/93 H Blood Pressure Mean 111 Blood Pressure Mean [Right Arm] 111 Blood Pressure Position Blood Pressure Position [Right Arm] Sitting Pulse Oximetry 94 91 Oxygen Delivery Method Room Air Sepsis Recent Fever Within 48 Hours Sepsis New/Unexplained Change in Mental Status Sepsis Action Taken by Nursing 01/17/25 19:12 01/17/25 19:21 01/17/25 19:30 Temperature Temperature Source Pulse Rate 90 91 H Pulse Rate [Right Finger] Pulse Rate from SpO2 Sensor 92 H 90 Pulse Rhythm Pulse Strength Respiratory Rate 25 H 23 Respiratory Effort / Characteristics Respiratory Depth Respiratory Pattern Blood Pressure 126/89 Blood Pressure [Right Arm] Blood Pressure Mean 97 Blood Pressure Mean [Right Arm] Blood Pressure Position Blood Pressure Position [Right Arm] Pulse Oximetry 86 L 91 Oxygen Delivery Method Sepsis Recent Fever Within 48 Hours Sepsis New/Unexplained Change in Mental Status Sepsis Action Taken by Nursing 01/17/25 19:30 01/17/25 19:33 01/17/25 19:51 Temperature Temperature Source Pulse Rate 92 H 93 H Pulse Rate [Right Finger] Pulse Rate from SpO2 Sensor 92 H 92 H Pulse Rhythm Pulse Strength Respiratory Rate 27 H 26 H Respiratory Effort / Characteristics Respiratory Depth Respiratory Pattern Blood Pressure 126/89 Blood Pressure [Right Arm] Blood Pressure Mean 97 Blood Pressure Mean [Right Arm] Blood Pressure Position Blood Pressure Position [Right Arm] Pulse Oximetry 83 L 90 Oxygen Delivery Method Sepsis Recent Fever Within 48 Hours Sepsis New/Unexplained Change in Mental Status Sepsis Action Taken by Nursing 01/17/25 19:54 01/17/25 20:00 01/17/25 20:06 Temperature Temperature Source Pulse Rate 93 H 87 Pulse Rate [Right Finger] Pulse Rate from SpO2 Sensor 93 H 87 Pulse Rhythm Pulse Strength Respiratory Rate 22 24 Respiratory Effort / Characteristics Respiratory Depth Respiratory Pattern Blood Pressure 133/88 Blood Pressure [Right Arm] Blood Pressure Mean 95 Blood Pressure Mean [Right Arm] Blood Pressure Position Blood Pressure Position [Right Arm] Pulse Oximetry 92 91 Oxygen Delivery Method Sepsis Recent Fever Within 48 Hours Sepsis New/Unexplained Change in Mental Status Sepsis Action Taken by Nursing 01/17/25 20:21 01/17/25 20:42 01/17/25 20:54 Temperature Temperature Source Pulse Rate 86 90 87 Pulse Rate [Right Finger] Pulse Rate from SpO2 Sensor 88 90 88 Pulse Rhythm Pulse Strength Respiratory Rate 26 H 23 23 Respiratory Effort / Characteristics Respiratory Depth Respiratory Pattern Blood Pressure Blood Pressure [Right Arm] Blood Pressure Mean Blood Pressure Mean [Right Arm] Blood Pressure Position Blood Pressure Position [Right Arm] Pulse Oximetry 90 93 89 L Oxygen Delivery Method Sepsis Recent Fever Within 48 Hours Sepsis New/Unexplained Change in Mental Status Sepsis Action Taken by Nursing 01/17/25 21:00 Temperature Temperature Source Pulse Rate Pulse Rate [Right Finger] Pulse Rate from SpO2 Sensor Pulse Rhythm Pulse Strength Respiratory Rate Respiratory Effort / Characteristics Respiratory Depth Respiratory Pattern Blood Pressure Blood Pressure [Right Arm] 128/90 Blood Pressure Mean Blood Pressure Mean [Right Arm] 102 Blood Pressure Position Blood Pressure Position [Right Arm] Pulse Oximetry Oxygen Delivery Method Sepsis Recent Fever Within 48 Hours Sepsis New/Unexplained Change in Mental Status Sepsis Action Taken by Nursing Laboratory Data 01/17/25 18:37 01/17/25 18:37 Lab Results 01/17/25 Range/Units 18:37 WBC 8.41 (4.8-10.8) K/ul RBC 5.43 (4.70-6.10) M/uL Hgb 15.3 (14.0-18.0) g/dl Hct 46.4 (42.0-52.0) % MCV 85.5 (80.0-100.0) fL MCH 28.2 (25.0-34.0) pg MCHC 33.0 (32.0-36.0) g/dL RDW Std Deviation 44.4 (36.4-46.3) fL RDW Coeff of Dharmesh 14.6 H (11.5-14.5) % Plt Count 255 (130-400) K/uL MPV 10.2 (9.4-12.4) fL Immature Gran % (Auto) 2.3 % Neut % (Auto) 64.6 % Lymph % (Auto) 15.1 % Candler % (Auto) 12.4 % Eos % (Auto) 4.6 % Baso % (Auto) 1.0 % Neut # (Auto) 5.44 (1.40-6.50) K/uL Lymph # (Auto) 1.27 (1.20-3.40) K/uL Candler # (Auto) 1.04 H (0.11-0.59) K/uL Eos # (Auto) 0.39 (0.00-0.50) K/uL Baso # (Auto) 0.08 (0.00-0.20) K/uL Immature Gran # (Auto) 0.19 (0.01-0.20) K/uL ESR 27 H (0-20) mm/hr Sodium 138 (136-145) mmol/L Potassium 4.4 (3.5-5.1) mmol/L Chloride 102 (98-107) mmol/L Carbon Dioxide 28 (21-32) mmol/L Anion Gap 8 (3-11) BUN 35 H (6-23) mg/dl Creatinine 2.04 H (0.6-1.4) mg/dl Est Cr Clr Drug Dosing 44.7 ml/min eGFR 36.40 BUN/Creatinine Ratio 17.2 (10-20) Glucose 147 H (70-99(Fasting)) mg/dl Calcium 9.0 (8.6-10.3) mg/dl Magnesium 2.1 (1.7-2.4) mg/dl Total Bilirubin 0.3 (0.2-1.0) mg/dl AST 24 (13-39) U/L ALT 33 (7-52) U/L Alkaline Phosphatase 110 H (34-104) U/L Troponin I High Sens 8.0 (0-20) pg/ml C-Reactive Protein 1.17 H (0-0.5) mg/dl Total Protein 7.2 (6.0-8.3) gm/dl Albumin 3.9 (3.4-5.0) gm/dl Globulin 3.3 (2.5-4.0) gm/dl Albumin/Globulin Ratio 1.2 (0.9-2) Lipase 35 (11-82) U/L Anaplasma Smear See Comment Babesia Smear See Comment Lyme Disease Screen Negative (Negative) Administered Medications Acetaminophen (Acetaminophen 325 Mg Tab) 650 mg PO Q4H PRN PRN Reason: Pain or Fever Stop: 02/16/25 22:19 Last Admin: 01/17/25 23:34 Dose: 650 mg Documented By: RK Amitriptyline HCl (Amitriptyline Hcl 10 Mg Tab) 10 mg PO HS NAHID Stop: 02/16/25 22:19 Last Admin: 01/17/25 23:35 Dose: 10 mg Documented By: RK Amlodipine Besylate (Amlodipine Besylate 5 Mg Tab) 5 mg PO QPM NAHID Stop: 02/16/25 22:19 Last Admin: 01/17/25 23:35 Dose: 5 mg Documented By: RK Famotidine (Famotidine 20 Mg Tab) 20 mg PO HS NAHID Stop: 02/16/25 22:19 Last Admin: 01/17/25 23:34 Dose: 20 mg Documented By: RK Melatonin (Melatonin 3 Mg Tab) 3 mg PO HS PRN PRN Reason: Sleep Stop: 02/16/25 22:19 Last Admin: 01/17/25 23:34 Dose: 3 mg Documented By: RK Discontinued Medications Lorazepam (Lorazepam 2 Mg/1 Ml Vial) 1 mg IV NOW STA Stop: 01/17/25 18:27 Last Admin: 01/17/25 18:41 Dose: 1 mg Documented By: VERNON Imaging Data Radiologist's Impression: Chest X-Ray 01/17/25 18:26 EXAM: Radiograph of the Chest 1 View INDICATION: Chest pain TECHNIQUE: Frontal view of the chest. COMPARISON: 12/19/2024 FINDINGS: Lungs and pleural spaces: No consolidation or pulmonary edema. No pleural effusion or pneumothorax. Heart: Shape and configuration within normal limits allowing for technique. Mediastinum: Normal contour. Bones/joints: Degenerative changes noted throughout the spine. No acute osseous abnormality seen. Soft tissues: No abnormality noted. No radiopaque foreign body noted. Upper abdomen: No abnormality noted. IMPRESSION: No acute cardiopulmonary disease. ACT 112: N/A Electronically signed by Darcy Lindsey 01-17-2025 7:46 PM Discharge Plan Visit Data Chief Complaint: Syncope Stated Complaint: NEURO ISSUES ED Provider: Jared Lemus Discharge Problem: Syncope, Muscle spasms of neck, Eye muscle twitches, HTN (hypertension) Patient Disposition: Admitted As Inpatient Condition: Fair Discharge Instructions Interventions: ED Discharge Assessment Last Done: 01/17/25 21:53 Discharge Problem: Syncope Qualifiers: Syncope type: unspecified Qualified Code(s): R55 - Syncope and collapse
[2025-01-17] MEDS: LORazepam 2 MG/1 ML VIAL IV STA (18:41)
[2025-01-17 18:52] LABS: Basophils # (auto) 0.08 K/uL (0.00-0.20); Eosinophils # (auto) 0.39 K/uL (0.00-0.50); Eosinophils % (auto) 4.6 %; Hematocrit (blood only) 46.4 % (42.0-52.0); Hemoglobin 15.3 g/dl (14.0-18.0); Immature Granulocytes # (auto) 0.19 K/uL (0.01-0.20); Immature Granulocytes % (auto) 2.3 %; Lymphocytes # (auto) 1.27 K/uL (1.20-3.40); Lymphocytes % (auto) 15.1 %; Mean Corpuscular Hemoglobin 28.2 pg (25.0-34.0); Mean Corpuscular Volume 85.5 fL (80.0-100.0); Mean Platelet Volume 10.2 fL (9.4-12.4); Monocytes # (auto) 1.04 K/uL (0.11-0.59); Monocytes % (auto) 12.4 %; Neutrophils # (auto) 5.44 K/uL (1.40-6.50); Neutrophils % (auto) 64.6 %; Platelet Count 255 K/uL (130-400); RDW Coefficient of Variation 14.6 % (11.5-14.5); RDW Standard Deviation 44.4 fL (36.4-46.3); Red Blood Count 5.43 M/uL (4.70-6.10); White Blood Count 8.41 K/ul (4.8-10.8)
[2025-01-17 19:10] LABS: Albumin Globulin Ratio 1.2 (0.9-2); Albumin Level 3.9 gm/dl (3.4-5.0); BUN Creatinine Ratio 17.2 (10-20); Bilirubin,Total 0.3 mg/dl (0.2-1.0); Creatinine Clr Calc Pharmacy 44.7 ml/min; Globulin 3.3 gm/dl (2.5-4.0); Potassium 4.4 mmol/L (3.5-5.1); Total Protein 7.2 gm/dl (6.0-8.3)
--- NOTE | 2025-01-17 19:46 | XRay Report ---
EXAM: Radiograph of the Chest 1 View INDICATION: Chest pain TECHNIQUE: Frontal view of the chest. COMPARISON: 12/19/2024 FINDINGS: Lungs and pleural spaces: No consolidation or pulmonary edema. No pleural effusion or pneumothorax. Heart: Shape and configuration within normal limits allowing for technique. Mediastinum: Normal contour. Bones/joints: Degenerative changes noted throughout the spine. No acute osseous abnormality seen. Soft tissues: No abnormality noted. No radiopaque foreign body noted. Upper abdomen: No abnormality noted. IMPRESSION: No acute cardiopulmonary disease. ACT 112: N/A Electronically signed by Darcy Lindsey 01-17-2025 7:46 PM
--- NOTE | 2025-01-17 20:14 | History & Physical Report ---
Date of Service January 17, 2025 Assessment & Plan (1) Recurrent episodes of unresponsiveness: (2) Spasm eyelid: (3) Muscle spasms of neck: (4) Mass of left side of neck: Plan Patient is a 59-year-old male with past medical history of CKD, IgA nephropathy, Buerger syndrome, HTN. Patient has had ongoing complaints of neck twitching in which he cannot open his eyes, he has been admitted for this in the past and was just evaluated in the ED 01/09 which essentially showed a negative workup including head CT and soft tissue neck CT. This evening patient had his similar neck twitching being unable to open his eyes however this was associated with a 30-minute - 1 hr unresponsive episode which he has not had for several months. Workup in the ED essentially negative, EKG showed NSR, troponin negative. #Unresponsive episode/cervical dystonia/blepharospasm - Symptoms worsen with HTN. Extensive workup in 2021 question of PRES versus seizure-like activity - brain MRI negative, Holter monitor negative. Patient's symptoms have been worsening since then and have now progressed to include neck spasms and high spasms. Patient does have a history of unresponsive episodes, typically relieved by clonidine; took clonidine prior to episode today without relief. Laboratories WNL. TSH WNL 01/09. Head CT negative 01/09, denies any head strike with syncopal episode today. Patient's reports blood pressure of 230/110 during episode. - Cuban syncope risk score 1 = medium risk; defer further syncopal workup as EKG NSR, troponin negative, denies any chest pain or dyspnea. Will monitor on telemetry. - Defer repeat head CT as just had 01/09 which was negative, denies any head strike, no anticoagulation - neurochecks Q4H; Consider repeat imaging if any changes - Ativan 1mg IV prn for muscle spams - brain MRI ordered - CRP, ESR, lyme screen, tickborne smear, mag ordered - Recommend referral to a neurologist outpatient at time of discharge - Differential remains broad, autoimmune condition versus neurologic - includes but not limited to idiopathic cause, Meige syndrome, Blandon's palsy, Amitriptyline side effect, psychogenic, early Parkinson's #Neck mass - Fluctuant left posterior bulge increasing in size over 1 week. Patient did have left shift on CBC 01/09, however resolved. No leukocytosis. Soft tissue neck CT negative on 01/09. - will order US #IgA nephropathy Cr improved from baseline, 2.04. - Continue Farxiga - promote oral hydration #HTNstable, patient reports BP 230/110 prior to episode in which she took clonidine which typically prevents episodes however did not this evening - Continue amlodipine, lisinopril, lasix, and clonidine #goutstable - Continue allopurinol #depression stable Continue amitriptyline - dystonia/spasms could be a side effect of amitriptyline and remains within differential VTE ppx: SCDs, low risk and OBS status; if prolonged stay consider chemical ppx Dispo: PCU given unresponsive episode Admission and Anticipated Discharge Date Admission Date: 01/17/25 History of Present Illness Primary Care Provider: Rosales Egan MD Patient is a 59-year-old male with past medical history of CKD, IgA nephropathy, HTN. Patient has had ongoing complaints of neck twitching in which he cannot open his eyes, he has been admitted for this in the past and was just evaluated in the ED 01/09 which essentially showed a negative workup including head CT and soft tissue neck CT. This evening patient had his similar neck twitching being unable to open his eyes however this was associated with a 30-minute - 1 hr unresponsive episode which he has not had for several months. Workup in the ED essentially negative, EKG showed NSR, troponin negative. Patient seen at bedside with his present. Patient stated he did feel this coming on as he had weakness and his body got warm. He was able to sit in a chair and denies any head strike or collapse with the syncopal episode. He typically takes clonidine when his blood pressure is elevated which prevents these unresponsive episodes. Patient stated approximately 2 months ago he began with neck twitching she cannot open his eyes. He was evaluated by an fence erector that thought this was secondary to dry eyes and gave him eyedrops, which did not seem to help. Patient also has a lump on the left side of his posterior neck which he had on 01/09 on evaluation in the ED in which soft tissue neck CT was negative, however patient stated it is increasing in size. Patient is greatly concerned because during his episode his close 230/110 and his glucose was 230, he has no history of DM. patient stated he feels fine now, denies headaches or dizziness. He is still having eye twitching however it greatly improved after receiving Ativan in the ED. 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 not following with any neurologist, as he has been unable to get an appointment. Patient believes his symptoms are not related to a stroke or cardiac in origin. He is getting concerned as his symptoms are getting worse in the episode today and would like some answers as to why this is happening. He stated the whole left side of his head is weak, however denies any numbness or tingling. He stated it feels heavy. Patient stated he gets sensitivity to warm or cold food and drinks as it spent sends a spasm through the left side of his face and head. He denies any infectious symptoms like runny nose, sore throat, cough, congestion, dysuria, abdominal pain. He denies nicotine use. He does not use any oxygen at baseline. He is due for his evening medications. He wishes to be full code. Patient stated he has been controlling his spasms at home with melatonin and herbal tea. Patient has had workup during admissions for this in the past which was contributory to psychogenic nonepileptic seizures associated with elevated blood pressure. He had had MRI in 2021 which was negative. Holter monitor in 2022 only showed sinus tachycardia. He would benefit from neurology outpatient. Allergies Allergy/AdvReac Type Severity Reaction Status Date / Time NSAIDS (Non-Steroidal AdvReac Intermediate Due to Verified 01/17/25 19:02 Anti-Inflamma patient Kidney disease- not supposed to take Home Medications Medication Instructions Recorded Confirmed Type amitriptyline 10 mg tablet 10 mg PO HS 12/06/22 01/17/25 History famotidine 20 mg tablet 20 mg PO HS 02/06/24 01/17/25 History clonidine HCl 0.1 mg tablet 0.1 mg PO QAM 02/11/24 01/17/25 History cholecalciferol (vitamin D3) 25 50 mcg PO QAM 03/20/24 01/17/25 History mcg (1,000 unit) capsule (Vitamin D3) ondansetron 4 mg disintegrating 4 mg PO Q6H PRN nausea and 03/20/24 01/17/25 Rx tablet vomiting #10 tabs furosemide 20 mg tablet 20 mg PO Q OTHER DAY #17 tabs 11/10/24 01/17/25 Rx amlodipine 5 mg tablet 5 mg PO QPM 11/18/24 01/17/25 History calcium 600 mg (as 1 tab PO QAM 12/22/24 01/17/25 History carbonate)-vitamin D3 5 mcg (200 unit) tablet dapagliflozin propanediol 10 mg 10 mg PO QAM 12/22/24 01/17/25 History tablet (Farxiga) lisinopril 40 mg tablet (Zestril) 40 mg PO QAM 12/22/24 01/17/25 History allopurinol 300 mg tablet 300 mg PO QAM #90 tabs 01/05/25 01/17/25 Rx diazepam 2 mg tablet (Valium) 2 mg PO BID PRN anxiety #10 tabs 01/09/25 01/17/25 Rx omega-3 fatty acids 1,000 mg 2,000 mg PO BID 01/17/25 01/17/25 History capsule Past Med/Surg History Problem List (Updated 01/18/25 @ 00:01 by Rabia Fuentes PA-C) Mass of left side of neck Eye muscle twitches (Acute) Muscle spasms of neck (Acute) Recurrent episodes of unresponsiveness Spasm eyelid (Acute) Muscle spasms of neck (Acute) Medial meniscus tear Left knee pain Varicocele Lower urinary tract symptoms Gout Vitamin D deficiency Stage 3b chronic kidney disease Pelvic pain in male Proteinuria Syncope (Acute) Transient global amnesia (Acute) IgA nephropathy (Acute) Scrotal pain Testicular/scrotal pain Chopra's disease (Chronic) HTN (hypertension) (Chronic) Medical History Chopra's disease Eye inflammation bilateral eyes, [facility] [place] [facility] and "slowly getting better" GERD (gastroesophageal reflux disease) controlled, stable per pt History of anesthesia reaction difficulty waking/slow to wake up. no issues with knee arthroscopy in 2023 at [facility] History of head injury (2015) transferred to [facility], no surgery, caused dizziness for a few years after injury but not current History of syncope intermittent per patient and -last episode 07/2023-unknown cause-patient and attribute to when HTN is difficult to control History of TIA (transient ischemic attack) (2005) no deficits Hx of gout Hypertension [facility], unsure why, denies follow up IgA nephropathy Prediabetes using farxiga for kidney protection Sleep-disordered breathing snoring and occasional witnessed apneas Stage 3b chronic kidney disease follows with DR Davis Testicular pain Follows with Dr Ward and Dr Davis Surgical History H/O hernia repair bilateral History of esophagogastroduodenoscopy (EGD) Hx of colonoscopy (2021) S/P appendectomy S/P right knee arthroscopy Status post biopsy of kidney 2005 - dx with IgA Nephropathy Family History Other No family history of adverse response to anesthesia Social History Smoking Status: Never smoker Tobacco Type: Cigars Cigarettes Per Day: "occasionally has a cigar" - advised on npo policy; Second Hand Exposure: No; Do You Dip or Chew Tobacco: No; Hx Alcohol Use: Yes Alcohol type: wine Hx Substance Use: No Preferred Language: German Communication Ability: Effective Visual Impairment: No Limitations Hearing Ability: Normal Painter Helper Sign Required: No Beliefs That Will Affect Care: None marital status: Current Living Situation: Spouse and Family current occupational status: employed 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 Non-toxic appearing. HEENT- EOMI, mucous membranes dry. Hearing grossly intact. Eyes twitching frequently on exam. Heart-normal S1 and S2. No murmurs, rubs or gallops. Lungs-clear bilaterally, no respiratory distress, no accessory muscle use. Abdomen-normal bowel sounds and soft. No ascites noted. Non-tender. Extremities- no clubbing, cyanosis, or edema. Rheumatologic-normal range of motion. Psychiatric-anxious affect. Neck: + neck tender Left neck tender to palpation with inflamed posterior soft mass Results & Data Results & Data Vital Signs (Past 12 Hours) Vital Signs Temp Pulse Pulse Resp BP BP Pulse Ox 01/17/25 19:12 36.6 C 89 18 149/93 H 91 01/17/25 18:31 01/17/25 18:29 83 01/17/25 18:26 99 01/17/25 18:26 36.9 C 79 19 144/87 H 99 O2 Del Method 01/17/25 19:12 Room Air 01/17/25 18:31 Room Air 01/17/25 18:29 01/17/25 18:26 Room Air 01/17/25 18:26 Room Air Laboratory Results reviewed CBC, CMP, troponin Diagnostic Findings reviewed CXR Medications Administered EDAtivan 1 Mg IV ECG Additional Comments: NSR, rate 80 QTc 431 Code Status & VTE Plan Code Status full VTE Prophylaxis Plan VTE Prophylaxis will be ordered: Yes Supervising Physician Co-Signing Physician Notes Patient seen and examined, chart reviewed, case discussed with MATA Fuentes and I agree with the assessment and plan as above PG Care Time/CCT Total # of Minutes Spent Total Time Spent with Patient: Total time spent is greater than 50% in coordination of care (as documented) at patient's floor/unit and/or counseling patient: Coding Level of Care Code 07105 INT INP/OBS CARE 3/75MIN Diagnoses Recurrent episodes of unresponsiveness R40.4 Spasm eyelid G24.5 Muscle spasms of neck M62.838 Mass of left side of neck R22.1
[2025-01-17 21:09] LABS: Magnesium 2.1 mg/dl (1.7-2.4)
[2025-01-17 21:55] LABS: Appearance Urine Clear (Clear); Bacteria Urine Automated None Seen (None Seen); Bilirubin Urine Negative (Negative); Blood Urine Negative (Negative); Cast Urine Automated 0-2 /lpf (0-2); Color Urine Yellow; Epithelial Cell Urine Auto 0-2 /hpf (0-2); Glucose Urine UA 3+ (Negative); Ketones Urine Negative (Negative); Leukocyte Esterase Urine Negative (Negative); Nitrite Urine Negative (Negative); Protein Urine 2+ (Negative); RBC Urine Automated 0-2 /hpf (0-2); Urobilinogen Urine Negative (Negative); WBC Urine Automated 0-5 /hpf (0-5); pH Urine 6.5 (4.5-7.5)
[2025-01-17] MEDS ORDERED: DOCUSATE SODIUM 100 MG CAP PO PRN (22:20)
[2025-01-17 22:52] LABS: C Reactive Protein 1.17 mg/dl (0-0.5)
[2025-01-17] MEDS: MELATONIN 3 MG TAB PO PRN (23:34)
[2025-01-17] MEDS: ACETAMINOPHEN 325 MG TAB PO PRN (23:34)
[2025-01-17] MEDS: FAMOTIDINE 20 MG TAB PO SCH (23:34)
[2025-01-17] MEDS: amLODIPine BESYLATE 5 MG TAB PO SCH (23:35)
[2025-01-17] MEDS: AMITRIPTYLINE HCL 10 MG TAB PO SCH (23:35)
--- NOTE | 2025-01-18 07:12 | Electrocardiogram Report ---
Test Reason : Blood Pressure : */* mmHG Vent. Rate : 80 BPM Atrial Rate : 80 BPM P-R Int : 156 ms QRS Dur : 104 ms QT Int : 374 ms P-R-T Axes : 42 14 45 degrees QTcB Int : 431 ms Normal sinus rhythm Normal ECG When compared with ECG of 12-Feb-2024 11:47, No significant change was found Confirmed by Keon Lynch ([id number]) on 01/18/2025 7:12:18 AM Referred By: REFERRED SELF Confirmed By: Keon Lynch
--- NOTE | 2025-01-18 07:18 | Hospitalist Progress Note ---
Date of Service January 18, 2025 Assessment & Plan (1) Recurrent episodes of unresponsiveness: (2) Spasm eyelid: (3) Muscle spasms of neck: (4) Mass of left side of neck: Plan Patient is a 59-year-old male with past medical history of CKD 3b, IgA nephropathy, Buerger syndrome, HTN, left sided neck mass, gout and recurrent syncope who presents for evaluation of ongoing episodes of unresponsiveness. Patient had negative ED workup 01/09 for same symptoms (CT Head, CT Neck, EKG, troponin negative). Notes episodes of neck twitching/fasciculations followed by inability to open his eyes and unresponsiveness for 30 - 60 minutes. Eye involvement started ~ 2 months ago, saw Ophthalmology and was placed on steroid eye drops. Patient noting associated left posterior neck spasms. Episodic Unresponsive Episodes w/ Cervical Dystonia/Blepharospasm - Hemodynamically stable on room air - Patient w/ history of traumatic brain injury requiring management at tertiary care (2016), TIAs, and prior syncopal events - Extensive workup for PRES vs seizures in 2021 d/t similar episode Noted to have negative Brain MRI and Holter Monitor - Reported to worsen w/ HTN, though uncertain if HTN is sx of episodes Episodes typically resolve with Clonidine, thus one did not - CBC/CMP unremarkable, >yme screen negative, ESR/CRP mildly elevated - EKG/telemetry/troponin unremarkable, asymptomatic from cardiac standpoint - CXR, CT Head/Neck w/o contrast unremarkable - CTA Chest, Head, and Neck unremarkable - MRI Brain w/o contrast unremarkable - Patient with apparent acute ptosis Above imaging not consistent with differentials of PRES or GRAVE CLEANER vasculitis Myasthenia gravis panel ordered ESR not significantly elevated, not diagnostic for Giant Cell Arteritis Repeat ESR/CRP in AM - Consultation to Neurology, appreciate recommendations - Continue Neuro checks Q4h - Ativan remains available PRN - Differential remains broad and includes autoimmune vs neurologic vs amitriptyline AE vs Parkinsons vs psychogenic Patient noted to be taking multiple unspecified herbs for symptom relief, unclear correlation #Neck mass - Palpable, Left posterior cervical neck mass - Superficial, mobile - Not noted on soft tissue CT Neck 01/09 - Patient noting increase over last week States chiropractor has noted growth over last few months - Appears superficial/connected to subcutaneous tissue or fat on CTA - Can consider soft tissue US if needed for characterization #IgA nephropathy/Chopra Disease Cr improved from baseline, 2.04, downtrending with light fluids - Continue Farxiga - Promote oral hydration - Syncope can be a symptom of IgA Nephropathy/dehydration though renal status appears stable - Discussed use of IV contrast w/ Nephrology, minimal risk if done alongside IVFs Limit use of contrast when possible #HTN Reported BP of 230/110 at home, patient took Clonidine - Continue amlodipine, lisinopril, lasix, and clonidine - Follow closely inpatient #Gout stable - Continue allopurinol #Depression stable Continue amitriptyline - dystonia/spasms could be a side effect of amitriptyline and remains within differential VTE ppx: SCDs, low risk and OBS status; if prolonged stay consider chemical ppx Dispo: PCU given unresponsive episode Admission and Anticipated Discharge Date Admission Date: January 17, 2025 Supervising Physician Co-Signing Physician Notes I personally examined the patient and verified all ye points of history and exam, discussed case, and agree with decision making with Dr Mazariegos Ongoing symptoms. And hard to open as well as a lot of facial spasm. He notes and then demonstrates that drinking ice cold water will very transiently essentially fix the whole problem. Vitals noted, in general he is laying in bed with his eyes closed and has a hard time opening them and periodically has facial muscle spasms. Breathing unlabored no accessory muscle use good effort. Skin without rashes pallor or icterus. Other than the face muscle spasms neurologically he seems intact and equal. Neck lesion posteriorly examines consistent with a lipoma it is nontender and freely mobile. He demonstrates drinking a large gulp of ice water and transiently his eyes are able to open fully and the facial muscle spasms seem to resolve facial muscle spasmsactual diagnosis not entirely clear. Extensive workup done, will require assistance from neurology. raises concern of Meige syndrome, and while i've not encountered this particular diagnosis, on review of clinical presentation it seems at least on the differential - will appreciate neurology input. Otherwise as above. Subjective Patient presented for unresponsive event lasting 30-60 minutes, he notes this has occurred before, but it has been years since the last episode. Patient notes that over the last 2 months has has developed left side neck, face, and eye spasms. He now notes that today, he is unable to keep his eyes open, left moreso than right, but drinking something cold allows him to briefly open his eyes. He endorses pain in the left eye and neck. He expresses concern that the mass on the left side of his neck is growing. He states that he was previously told that the mass could not be removed because it affected his spine (unable to confirm on records review). He has continued to see his Chiropractor who alerted him that the lesion was growing. Patient ate his breakfast without difficulty swallowing. He denies chest pain, dyspnea, fevers or chills. He has not experienced any new rashes. Physical Exam Physical Exam: Gen: AO x 4, NCAT, no acute distress, non-toxic HEENT- Dry mucous membranes, eye lid ptosis bilaterally (resolved with cool drink), soft/fluctuant mass on left posterior neck Heart-RRR normal S1/S2, no MRG [id number], CTAB Abdomen- Soft, nondistended, active bowel sounds, no masses Extremities- Upper and lower extremity strength, sensation, and reflexes intact Skin: Intact, no rashes, lesions, or erythema Neuro: Cranial Nerves CN I (Olfactory): Not assessed CN II (Optic): Visual nicole intact CN III, IV, (Oculomotor, Trochlear, Abducens): PERRLA/EOMI CN V (Trigeminal): Intact CN VII (Facial): Intact CN VIII (Vestibulocochlear): Hearing intact, balance not assessed CN IX, X (Glossopharyngeal, Vagus): Not assessed CN XI (Accessory): Intact CN XII (Hypoglossal): Intact Results & Data Results & Data Vital Signs (Past 12 Hours) Vital Signs Temp Pulse Pulse Resp BP BP Pulse Ox 01/18/25 07:10 36.3 C L 70 18 133/85 96 01/18/25 07:10 67 01/18/25 03:34 36.9 C 88 17 169/89 H 98 01/18/25 00:11 80 01/17/25 22:26 36.3 C L 85 18 168/107 H 91 01/17/25 22:20 36.3 C L 85 20 168/107 H 91 01/17/25 21:36 84 18 120/88 91 01/17/25 21:00 128/90 01/17/25 20:54 87 23 89 L 01/17/25 20:42 90 23 93 01/17/25 20:21 86 26 H 90 01/17/25 20:06 87 24 91 01/17/25 20:00 133/88 01/17/25 19:54 93 H 22 92 01/17/25 19:51 93 H 26 H 90 01/17/25 19:33 92 H 27 H 83 L 01/17/25 19:30 126/89 01/17/25 19:30 126/89 01/17/25 19:21 91 H 23 91 01/17/25 19:12 90 25 H 86 L 01/17/25 19:12 36.6 C 89 18 149/93 H 91 O2 Del Method 01/18/25 07:10 Room Air 01/18/25 07:10 01/18/25 03:34 Room Air 01/18/25 00:11 01/17/25 22:26 Room Air 01/17/25 22:20 Room Air 01/17/25 21:36 Room Air 01/17/25 21:00 01/17/25 20:54 01/17/25 20:42 01/17/25 20:21 01/17/25 20:06 01/17/25 20:00 01/17/25 19:54 01/17/25 19:51 01/17/25 19:33 01/17/25 19:30 01/17/25 19:30 01/17/25 19:21 01/17/25 19:12 01/17/25 19:12 Room Air Resident Activity Tracking Resident Involvement: Resident Care Provided Care Provided: Adult Hospital Medicine
[2025-01-18 08:07] LABS: Basophils # (auto) 0.06 K/uL (0.00-0.20); Basophils % (auto) 0.8 %; Eosinophils # (auto) 0.38 K/uL (0.00-0.50); Eosinophils % (auto) 5.3 %; Hematocrit (blood only) 48.2 % (42.0-52.0); Hemoglobin 15.3 g/dl (14.0-18.0); Immature Granulocytes # (auto) 0.19 K/uL (0.01-0.20); Immature Granulocytes % (auto) 2.6 %; Lymphocytes # (auto) 1.31 K/uL (1.20-3.40); Lymphocytes % (auto) 18.2 %; Mean Corpuscular Hemoglobin 27.8 pg (25.0-34.0); Mean Corpuscular Hgb Conc 31.7 g/dL (32.0-36.0); Mean Corpuscular Volume 87.5 fL (80.0-100.0); Mean Platelet Volume 10.3 fL (9.4-12.4); Monocytes # (auto) 0.95 K/uL (0.11-0.59); Monocytes % (auto) 13.2 %; Neutrophils % (auto) 59.9 %; Platelet Count 264 K/uL (130-400); RDW Coefficient of Variation 14.5 % (11.5-14.5); RDW Standard Deviation 46.2 fL (36.4-46.3); Red Blood Count 5.51 M/uL (4.70-6.10); White Blood Count 7.19 K/ul (4.8-10.8)
[2025-01-18 08:21] LABS: BUN Creatinine Ratio 17.6 (10-20); Calcium 9.2 mg/dl (8.6-10.3); Creatinine Clr Calc Pharmacy 47.7 ml/min; Potassium 4.6 mmol/L (3.5-5.1)
[2025-01-18] MEDS: LACTATED RINGER'S 250 ML IV ONE (09:13)
[2025-01-18] MEDS: OPTIRAY 320 125ml IV ONE (09:43)
[2025-01-18] MEDS: LACTATED RINGER'S 1,000 ML IV SCH (09:58)
[2025-01-18] MEDS: allopurinoL 300 MG TAB PO SCH (09:59)
[2025-01-18] MEDS: lisinopril 40 MG TAB PO SCH (09:59)
[2025-01-18] MEDS: cloNIDine HCL 0.1 MG TAB PO SCH (09:59)
--- NOTE | 2025-01-18 10:09 | CT Scan Report ---
CT angio head wo/w, CT angio neck with con CLINICAL HISTORY: Bechetts, prolonged syncope COMPARISON STUDY: 01/09/2025 FINDINGS: Noncontrast head CT: No intracranial hemorrhage seen. No mass effect, midline shift, or hydrocephalus . CTA: Bilateral common and internal carotid arteries show no significant narrowing or occlusion. Left vertebral artery is dominant and the right vertebral artery is diminutive beyond PICA, anatomic varia nt. No significant narrowing seen of the vertebral arteries. Basilar artery is patent. The anterior, middle, and posterior cerebral arteries are patent bilaterally. There is partial origin of the posterior cerebral arteries, anatomic variant. Cerebral venous sinuses opacify normally. No intracran ial aneurysm seen. IMPRESSION: 1. No acute findings. 2. No significant arterial narrowing or occlusion seen at the neck or brain. ACT 112: Negative or not required by law. Electronically signed by: Klaus Hankins M.D. 01/18/2025 10:07 AM
--- NOTE | 2025-01-18 10:23 | CT Scan Report ---
CT angio chest w con CLINICAL HISTORY: Bechetts, prolonged syncope COMPARISON STUDY: None FINDINGS: There is a small calcified granuloma at the right upper lung lobe. There is no pulmonary co nsolidation or pleural effusion. No pneumothorax. There is minimal atelectasis in the lung bases. No evidence of interstitial lung disease. No significant pulmonary nodule. There is a tiny subcentimeter nodule at the right thyroid lobe. No enlarged adenopathy. No pericardial effusion. No thoracic aorti c dissection or aneurysm. No pericardial effusion. There are mild thoracic spine degenerative changes . No acute osseous findings. IMPRESSION: 1. No evidence of thoracic aortic dissection or aneurysm. No evidence of vasculitis seen. 2. No pneumonia or pleural effusion. ACT 112: Negative or not required by law. Electronically signed by: Klaus Hankins M.D. 01/18/2025 10:21 AM
--- NOTE | 2025-01-18 13:38 | Magnetic Resonance Report ---
MR brain wo con CLINICAL HISTORY: ptosis, eye pain, neck spasm, prolonged syncope COMPARISON STUDY: MRI of 04/26/[address] scans earlier today. FINDINGS: There is mild motion artifact. No restricted diffusion seen to suggest acute infarction. No mass effect, midline shift, or hydrocephalus. No significant signal abnormality seen in the brain. T here is mild paranasal sinus mucosal thickening. IMPRESSION: No evidence of acute infarction. ACT 112: Negative or not required by law. Electronically signed by: Klaus Hankins M.D. 01/18/2025 1:36 PM
[2025-01-18] MEDS: cloNIDine HCL 0.1 MG TAB PO PRN (16:01)
--- NOTE | 2025-01-18 17:50 | Billing Data ---
Date of Service January 18, 2025 Coding Level of Care Code 84615 SUB INP/OBS CARE MIN
[2025-01-18] MEDS: DIVALPROEX EXTENDED RELEASE 500 MG TAB PO SCH (20:15)
--- NOTE | 2025-01-19 07:04 | Hospitalist Progress Note ---
Date of Service January 19, 2025 Assessment & Plan (1) Recurrent episodes of unresponsiveness: (2) Spasm eyelid: (3) Muscle spasms of neck: (4) Mass of left side of neck: Plan Patient is a 59 yo M w/ a PMHx of CKD 3b, IgA nephropathy, Buerger syndrome, HTN, left-sided neck mass, gout and recurrent syncope who presents for evaluation of ongoing episodes of unresponsiveness. Patient had negative ED workup 01/09 for same symptoms (CT Head, CT Neck, EKG, troponin negative). Notes episodes of neck twitching/fasciculations followed by inability to open his eyes and unresponsiveness for 30 - 60 minutes. Eye involvement started ~ 2 months ago, saw Ophthalmology and was placed on steroid eye drops. Patient noting associated left posterior neck spasms. 1) Episodic Unresponsive Episodes w/ Cervical Dystonia/Blepharospasm - Hemodynamically stable on room air - Patient w/ history of traumatic brain injury requiring management at tertiary care (2016), TIAs, and prior syncopal events - Extensive workup for PRES vs seizures in 2021 d/t similar episode Noted to have negative Brain MRI and Holter Monitor - Reported to worsen w/ HTN, though uncertain if HTN is Sx of episodes Episodes typically resolve with Clonidine, but one did not - CBC/CMP unremarkable, >Lyme screen negative, ESR/CRP mildly elevated, ESR 27, CRP, 1.17 on admission - EKG/telemetry/troponin unremarkable, asymptomatic from cardiac standpoint - CXR, CT Head/Neck w/o contrast unremarkable; CTA Chest, Head, and Neck unremarkable - MRI Brain w/o contrast unremarkable - Patient with apparent acute ptosis Above imaging not consistent with differentials of PRES or INTERNET SALESPERSON vasculitis Myasthenia gravis panel ordered, pending ESR not diagnostic for Giant Cell Arteritis Follow ESR, 27 --> 29 - Consultation to Neurology, appreciate recommendations - Continue Neuro checks Q4h - Ativan remains available PRN - Differential remains broad and includes autoimmune vs neurologic vs amitriptyline AE vs Parkinsons vs psychogenic Neurology DDx includes myasthenia gravis vs. Meige (Brueghel) syndrome; MG Ab workup is pending at [facility] Patient noted to be taking multiple unspecified herbs for symptom relief, unclear correlation catnip, oxeye trudy, Sleepytime tea 2) Neck mass - Palpable, Left posterior cervical neck mass - Superficial, mobile - Not noted on soft tissue CT Neck 01/09 - Patient noting increase over last week States chiropractor has noted growth over last few months - Appears superficial/connected to subcutaneous tissue or fat on CTA - Can consider soft tissue US if needed for characterization 3) IgA nephropathy/Chopra's Disease Cr improved from baseline, 2.04, downtrending with light fluids - Hold Farxiga during inpatient stay (not available thru hospital) - Syncope can be a symptom of IgA Nephropathy/dehydration though renal status appears stable - Discussed use of IV contrast w/ Nephrology, minimal risk if done alongside IVFs Limit use of contrast when possible 4) HTN Reported BP of 230/110 at home, patient took Clonidine - Continue amlodipine, lisinopril, lasix, and clonidine - Follow closely inpatient 5) Gout - stable, Continue allopurinol 6) Depression Continue amitriptyline - dystonia/spasms could be a side effect of amitriptyline and remains within differential VTE ppx: SCDs, low risk and OBS status; if prolonged stay, consider chemical ppx Dispo: PCU given unresponsive episode Code status: Full code Admission and Anticipated Discharge Date Admission Date: January 17, 2025 Supervising Physician Co-Signing Physician Notes I personally examined the patient and verified ye points of history and exam, discussed case, and agree with decision making and plan documented by Dr. Oliver. Medical team attempting to obtain labs drawn at [facility] over 10 days ago for workup of ptosis. Neurology has been consulted and recommended up titration of Depakote and initiation of baclofen. Patient recommended to follow-up with [facility] physicians outpatient. Subjective Patient is a 59 yo M w/ a PMHx of gout, IgA nephropathy/Chopra's dz, CKD-stage 3, HTN, GERD, prediabetes, Hx of TIA, presented for unresponsive event lasting 30-60 minutes, he notes this has occurred before, but it has been years since e last episode. Patient also noted over the last 2 months has has developed left-sided neck, face, and eye spasms. He now notes that today, he is unable to keep his eyes open, left more so than right, but drinking something cold allows him to briefly open his eyes. He endorses pain in the left eye and neck. Patient also has concern that the mass on the left side of his neck is growing. States that he was previously told the mass could not be removed because it affected his spine (unable to confirm on records review). His chiropractor alerted him that the lesion was growing. He denies chest pain, dyspnea, fevers or chills. He has not experienced any new rashes. Patient seen and evaluated at bedside this morning, with significant blepharospasms, particularly on the l. side accompanied by left sided neck spasms. When holding the left eye closed patient is able to open the r. eye, but is unable to do that for the left eye when holding the r. eye closed. Review of Systems Constitutional: no fever, no chills, no body aches and no fatigue Eyes: + eye pain (left-sided eye pain) Respiratory: no cough and no dyspnea Cardiovascular: no chest pain and no palpitations Neurologic: + paralysis (difficult time opening eyes , particularly on l. side) and + abnormal movements; no tingling, no numbness and no headache(s) Physical Exam Constitutional: WD/WN, vitals as above Eyes: + eyelid abnormality, PERRL, normal acco mmodation and EOM intact bilaterally Neck: + abnormal visual inspection (left poste rior l. mass) Respiratory: normal respiratory effort, lungs clear to auscultation Cardiovascular: RRR, no murmur, no edema Gastrointestinal (Abdomen): normal bowel sounds, soft, nontender, no hepatosplenomegaly Neurologic: moves all extremities and awake Motor/Sensory: + abnormal movement (blepharospasms of l. eye) Cranial Nerves: PERRL, normal accommodation, EOM intact bilaterally (intact to exam after drinking cold water), tongue midline, normal hearing, able to elevate shoulders bilaterally and no nystagmus ptosis of both eyes, more pronounced on l. side Psychiatric: A+Ox3, euthymic affect Results & Data Results & Data Vital Signs (Past 12 Hours) Vital Signs Temp Pulse Pulse Resp BP BP Pulse Ox 01/19/25 07:00 36.4 C L 74 20 136/81 95 01/19/25 02:57 36.4 C L 70 16 142/81 H 95 01/18/25 22:53 36.4 C L 65 18 116/71 94 01/18/25 22:03 63 01/18/25 20:00 01/18/25 19:50 36.2 C L 74 18 135/80 93 O2 Del Method 01/19/25 07:00 Room Air 01/19/25 02:57 Room Air 01/18/25 22:53 Room Air 01/18/25 22:03 01/18/25 20:00 Room Air 01/18/25 19:50 Room Air
[2025-01-19 07:14] LABS: C Reactive Protein 1.16 mg/dl (0-0.5)
[2025-01-19] MEDS: FUROSEMIDE 20 MG TAB PO SCH (08:06)
[2025-01-19 10:49] LABS: BUN Creatinine Ratio 15.8 (10-20); Calcium 9.3 mg/dl (8.6-10.3); Creatinine Clr Calc Pharmacy 41.6 ml/min; Potassium 4.8 mmol/L (3.5-5.1)
--- NOTE | 2025-01-19 18:35 | Neurology Consultation ---
Date of Consultation January 19, 2025 Assessment & Plan (1) Eye muscle twitches: History of Present Illness Attending Physician: January Basurto DO History of Present Illness s: pt with 2 months of having initially left side neck muscle spasms and left face spasm and then eyelid spasms (upper and lower) that has now involved rt eye also. pt can't open his eyes, not because of weakness but due to spasm. he apparently saw ophthalmology also and had eye drops without improvement. pt apparently also had MG panel drawn from [facility] (pending result). no body weakness. no headache. mri brain negative. at night feels better and his eyelid spasms starts suddenly and can't open his eyelids. admission HPI: Patient is a 59-year-old male with past medical history of CKD, IgA nephropathy, HTN. Patient has had ongoing complaints of neck twitching in which he cannot open his eyes, he has been admitted for this in the past and was just evaluated in the ED 01/09 which essentially showed a negative workup including head CT and soft tissue neck CT. This evening patient had his similar neck twitching being unable to open his eyes however this was associated with a 30-minute - 1 hr unresponsive episode which he has not had for several months. Workup in the ED essentially negative, EKG showed NSR, troponin negative. Patient seen at bedside with his present. Patient stated he did feel this coming on as he had weakness and his body got warm. He was able to sit in a chair and denies any head strike or collapse with the syncopal episode. He typically takes clonidine when his blood pressure is elevated which prevents these unresponsive episodes. Patient stated approximately 2 months ago he began with neck twitching she cannot open his eyes. He was evaluated by an household appliance installer that thought this was secondary to dry eyes and gave him eyedrops, which did not seem to help. Patient also has a lump on the left side of his posterior neck which he had on 01/09 on evaluation in the ED in which soft tissue neck CT was negative, however patient stated it is increasing in size. Patient is greatly concerned because during his episode his close 230/110 and his glucose was 230, he has no history of DM. patient stated he feels fine now, denies headaches or dizziness. He is still having eye twitching however it greatly improved after receiving Ativan in the ED. 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 not following with any neurologist, as he has been unable to get an appointment. Patient believes his symptoms are not related to a stroke or cardiac in origin. He is getting concerned as his symptoms are getting worse in the episode today and would like some answers as to why this is happening. He stated the whole left side of his head is weak, however denies any numbness or tingling. He stated it feels heavy. Patient stated he gets sensitivity to warm or cold food and drinks as it spent sends a spasm through the left side of his face and head. He denies any infectious symptoms like runny nose, sore throat, cough, congestion, dysuria, abdominal pain. He denies nicotine use. He does not use any oxygen at baseline. He is due for his evening medications. He wishes to be full code. Patient stated he has been controlling his spasms at home with melatonin and herbal tea. Patient has had workup during admissions for this in the past which was contributory to psychogenic nonepileptic seizures associated with elevated blood pressure. He had had MRI in 2021 which was negative. Holter monitor in 2022 only showed sinus tachycardia. He would benefit from neurology outpatient. Allergies Allergy/AdvReac Type Severity Reaction Status Date / Time NSAIDS (Non-Steroidal AdvReac Intermediate Due to Verified 01/17/25 19:02 Anti-Inflamma patient Kidney disease- not supposed to take Home Medications Medication Instructions Recorded Confirmed Type amitriptyline 10 mg tablet 10 mg PO HS 12/06/22 01/17/25 History famotidine 20 mg tablet 20 mg PO HS 02/06/24 01/17/25 History clonidine HCl 0.1 mg tablet 0.1 mg PO QAM 02/11/24 01/17/25 History cholecalciferol (vitamin D3) 25 50 mcg PO QAM 03/20/24 01/17/25 History mcg (1,000 unit) capsule (Vitamin D3) ondansetron 4 mg disintegrating 4 mg PO Q6H PRN nausea and 03/20/24 01/17/25 Rx tablet vomiting #10 tabs furosemide 20 mg tablet 20 mg PO Q OTHER DAY #17 tabs 11/10/24 01/17/25 Rx amlodipine 5 mg tablet 5 mg PO QPM 11/18/24 01/17/25 History calcium 600 mg (as 1 tab PO QAM 12/22/24 01/17/25 History carbonate)-vitamin D3 5 mcg (200 unit) tablet dapagliflozin propanediol 10 mg 10 mg PO QAM 12/22/24 01/17/25 History tablet (Farxiga) lisinopril 40 mg tablet (Zestril) 40 mg PO QAM 12/22/24 01/17/25 History allopurinol 300 mg tablet 300 mg PO QAM #90 tabs 01/05/25 01/17/25 Rx diazepam 2 mg tablet (Valium) 2 mg PO BID PRN anxiety #10 tabs 01/09/25 01/17/25 Rx omega-3 fatty acids 1,000 mg 2,000 mg PO BID 01/17/25 01/17/25 History capsule Patient History Medical History Chopra's disease Eye inflammation bilateral eyes, started on steroid eye drops by the CT [place] on 12/15/24 and "slowly getting better" GERD (gastroesophageal reflux disease) controlled, stable per pt History of anesthesia reaction difficulty waking/slow to wake up. no issues with knee arthroscopy in [address] [facility] History of head injury (2015) transferred to [facility], no surgery, caused dizziness for a few years after injury but not current History of syncope intermittent per patient and -last episode 07/2023-unknown cause-patient and attribute to when HTN is difficult to control History of TIA (transient ischemic attack) (2005) no deficits Hx of gout Hypertension referred to cardiology from the CT, unsure why, denies follow up IgA nephropathy Prediabetes using farxiga for kidney protection Sleep-disordered breathing snoring and occasional witnessed apneas Stage 3b chronic kidney disease follows with DR Davis Testicular pain Follows with Dr Ward and Dr Davis Surgical History H/O hernia repair bilateral History of esophagogastroduodenoscopy (EGD) Hx of colonoscopy (2021) S/P appendectomy S/P right knee arthroscopy Status post biopsy of kidney 2004 - dx with IgA Nephropathy Family History Other No family history of adverse response to anesthesia Social History Smoking Status: Never smoker Tobacco Type: Cigars Cigarettes Per Day: "occasionally has a cigar" - advised on npo policy; Second Hand Exposure: No; Do You Dip or Chew Tobacco: No; Hx Alcohol Use: Yes Alcohol type: wine Hx Substance Use: No Preferred Language: Japanese Communication Ability: Effective Visual Impairment: No Limitations Hearing Ability: Normal Family Day Care Worker Required: No Beliefs That Will Affect Care: None marital status: Current Living Situation: Spouse and Family current occupational status: employed 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 Other Information That Helps Us Care for You: No Feels Safe at Home: Yes Safety Concerns: Feels Safe At This Time Diet: regular caffeine: Yes Physical Activity Frequency: Does not Exercise Seatbelt Use: always Do you think of yourself as: straight/heterosexual Gender Identity: Male Assistive Devices: Hospital Bed Exam (Neuro) Physical Exam: HEENT: normocephalic grossly Neuro: Mental: AOx4, fluent speech, normal comprehension, no apraxia, no L/R confusion, no neglect CN: PERRL, Full EOM, symmetric face, midline T/U/P, grossly full ROM neck , difficult to open his eyelids upper and lower due to forceful spasm/closure b/l (left greater than rt). 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 Unclear etiology. Meige syndrome is in differential diagnosis. stress/anxiety also likely contributing. It is rare idiopathic focal dystonia/spasms. Not suggestive of NMJ disorder. Recommendations: increase depakote to 500mg po bid start baclofen 10mg po tid f/[facility] to follow up on the labs he had recently. continue outpt work up as scheduled with [facility]. not much to offer as inpt at this point. Chart reviewed I have spent more than 50% educating patient about potential diagnosis and neurological evaluation and coordinating care with patient's treatment team. Total time spent (including chart review and coordination of care): 45 min (this includes chart review). Results & Data Vital Signs (Past 12 Hours) Vital Signs Temp Pulse Pulse Resp BP Pulse Ox O2 Del Method 01/19/25 15:22 36.7 C 80 18 134/87 94 Room Air 01/19/25 15:16 86 01/19/25 10:34 36.5 C 75 19 120/75 94 Room Air 01/19/25 07:25 60 01/19/25 07:00 36.4 C L 74 20 136/81 95 Room Air PG Care Time/CCT Total # of Minutes Spent Total Time Spent with Patient: Total time spent is greater than 50% in coordination of care (as documented) at patient's floor/unit and/or counseling patient: Coding Level of Care Code 25074 IN/OBS CONSULT LVL 3,45M Diagnoses Eye muscle twitches R25.3
[2025-01-19] MEDS: BACLOFEN 10 MG TAB PO SCH (20:47)
[2025-01-19] MEDS: DIVALPROEX EXTENDED RELEASE 500 MG TAB PO SCH (20:47)
--- NOTE | 2025-01-20 07:03 | Hospitalist Progress Note ---
Date of Service January 20, 2025 Assessment & Plan (1) Recurrent episodes of unresponsiveness: (2) Spasm eyelid: (3) Muscle spasms of neck: (4) Mass of left side of neck: Plan Patient is a 59 yo M w/ a PMHx of CKD 3b, IgA nephropathy, Buerger syndrome, HTN, left-sided neck mass, gout and recurrent syncope who presents for evaluation of ongoing episodes of unresponsiveness. Patient had negative ED workup 01/09 for same symptoms (CT Head, CT Neck, EKG, troponin negative). Notes episodes of neck twitching/fasciculations followed by inability to open his eyes and unresponsiveness for 30 - 60 minutes. Eye involvement started ~ 2 months ago, saw Ophthalmology and was placed on steroid eye drops. Patient noting associated left posterior neck spasms. 1) Episodic Unresponsive Episodes - Hemodynamically stable on room air - Patient w/ history of traumatic brain injury requiring management at tertiary care (2016), TIAs, and prior syncopal events - Extensive workup for PRES vs seizures in 2021 d/t similar episode Noted to have negative Brain MRI and Holter Monitor - Reported to worsen w/ HTN, though uncertain if HTN is Sx of episodes Episodes typically resolve with Clonidine, but one did not - CBC/CMP unremarkable, >Lyme screen negative, ESR/CRP mildly elevated, ESR 27, CRP, 1.17 on admission - EKG/telemetry/troponin unremarkable, asymptomatic from cardiac standpoint - CXR, CT Head/Neck w/o contrast unremarkable; CTA Chest, Head, and Neck unremarkable - MRI Brain w/o contrast unremarkable - Above imaging not consistent with differentials of PRES or 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 Meige (Brueghel) syndrome; MG Ab workup is pending at [facility] Patient noted to be taking multiple unspecified herbs for symptom relief, unclear correlation catnip, oxeye trudy, Sleepytime tea Started patient on valproic acid, 500 mg, PO, BID and baclofen, 10 mg, PO, TID (increased to 20 mg) Patient w/ scheduled outpt Neurology appt where other Tx may be considered including Botox injections 3) Neck mass - Palpable, Left posterior cervical neck mass - Superficial, mobile - Not noted on soft tissue CT Neck 5/2 - Patient noting increase over last week States chiropractor has noted growth over last few months - Appears superficial/connected to subcutaneous tissue or fat on CTA - Can consider soft tissue US if needed for characterization 4) IgA nephropathy/Chopra's Disease Cr up from baseline, 2.04, encouraged patient to increase oral intake - Hold Farxiga during inpatient stay (not available thru hospital) - Syncope can be a symptom of IgA Nephropathy/dehydration though renal status appears stable - Discussed use of IV contrast w/ Nephrology, minimal risk if done alongside IVFs Limit use of contrast when possible 5) HTN Reported BP of 230/110 at home, patient took Clonidine - Continue amlodipine, lisinopril, Lasix, and clonidine - Follow closely inpatient 6) Gout - stable, Continue allopurinol 6) Depression Continue amitriptyline - dystonia/spasms could be a side effect of amitriptyline and remains within differential but less likely VTE ppx: SCDs, low risk and OBS status; if prolonged stay, consider chemical ppx Dispo: PCU given unresponsive episode Code status: Full code Admission and Anticipated Discharge Date Admission Date: January 17, 2025 Supervising Physician Co-Signing Physician Notes I personally examined the patient and verified ye points of history and exam, discussed case, and agree with decision making and plan documented by Dr. Oliver. Patient reports no improvement with Depakote and baclofen at present, will uptitrate baclofen. Authorization through patient's [facility] for patient to see neurologist at [facility]. He has an appointment with his [facility] neurologist in April. He contacted [facility] today with no results of labs drawn 10 days prior. Striated muscle antibody and acetylcholine receptor binding antibody pending. Discussed with patient and his likely discharge tomorrow. Subjective Patient is a 59 yo M w/ a PMHx of gout, IgA nephropathy/Chopra's dz, CKD-stage 3, HTN, GERD, prediabetes, Hx of TIA, presented for unresponsive event lasting 30-60 minutes, he notes this has occurred before, but it has been years since the last episode. Patient also noted over the last 2 months has has developed left-sided neck, face, and eye spasms. He now notes that today, he is unable to keep his eyes open, left more so than right, but drinking something cold allows him to briefly open his eyes. He endorses pain in the left eye and neck. Patient also has concern that the mass on the left side of his neck is growing. States that he was previously told the mass could not be removed because it affected his spine (unable to confirm on records review). His chiropractor alerted him that the lesion was growing. He denies chest pain, dyspnea, fevers or chills. He has not experienced any new rashes. Patient seen and evaluated again at bedside this morning, still with significant blepharospasms, and accompanying blepharoptosis, particularly on the l. side accompanied by left sided neck spasms. When holding the left eye closed patient is able to open the r. eye, but is unable to do that for the left eye when holding the r. eye closed. Patient does not endorse much improvement on current medication regimen and is eager for some relief of his constant ptosis. Review of Systems Constitutional: no fever, no chills, no body aches and no fatigue Eyes: + eye pain (left-sided eye pain) Respiratory: no cough and no dyspnea Cardiovascular: no chest pain and no palpitations Neurologic: + paralysis (difficult time opening eyes , particularly on l. side), + tremor(s) (spasm(s) of left side of neck) and + abnormal movements; no tingling, no numbness and no headache(s) Physical Exam Constitutional: WD/WN, vitals as above Eyes: + eyelid abnormality, PERRL, normal acco mmodation and EOM intact bilaterally Neck: + abnormal visual inspection (left poste rior l. mass) Respiratory: normal respiratory effort, lungs clear to auscultation Cardiovascular: RRR, no murmur, no edema Gastrointestinal (Abdomen): normal bowel sounds, soft, nontender, no hepatosplenomegaly Neurologic: moves all extremities and awake Motor/Sensory: + abnormal movement (blepharospasms of l. eye) Cranial Nerves: PERRL, normal accommodation, EOM intact bilaterally (intact to exam after drinking cold water), tongue midline, normal hearing, able to elevate shoulders bilaterally and no nystagmus Patient w/ temporary resolution of blepharoptosis/blepharospasms after using an ice pack on eyes for a few minutes or even more briefly after drinking cold water. Psychiatric: A+Ox3, euthymic affect Results & Data Results & Data Vital Signs (Past 12 Hours) Vital Signs Temp Pulse Resp BP BP Pulse Ox O2 Del Method 01/20/25 03:23 36.6 C 73 20 114/69 94 Room Air 01/19/25 23:36 36.5 C 79 19 113/73 93 Room Air 01/19/25 20:00 Room Air 01/19/25 20:00 36.4 C L 79 18 133/80 95 Room Air Resident Activity Tracking Resident Involvement: Resident Care Provided Care Provided: Adult Hospital Medicine
[2025-01-20 07:25] LABS: BUN Creatinine Ratio 16.7 (10-20); C Reactive Protein 1.39 mg/dl (0-0.5); Calcium 9.4 mg/dl (8.6-10.3); Creatinine Clr Calc Pharmacy 38.2 ml/min; Potassium 4.6 mmol/L (3.5-5.1)
[2025-01-20] MEDS: ONDANSETRON INJ 2 MG/ML 2 ML VIAL IV PRN (18:16)
--- NOTE | 2025-01-20 19:32 | Communication Note ---
Date of Service: January 20, 2025 Notified by RN shortly after shift change that patient was unresponsive with bilateral blepharospasm. BP 171/84, HR 97, SpO2 94% on RA. BSG 112. Patient seen at bedside, nonresponsive to verbal stimulus but withdrew to painful stimuli and would mumble occasionally. Bilateral blepharospasm appreciated. Patient has had thorough imaging work up this admission without notable findings - coupled with stable vitals, immediate reimaging deferred. In accordance with documentation noting correlation between BP elevation and unresponsive episodes, patient was given IV hydralazine 5mg. Follow up BP 144/83. Patient reassessed at bedside. He was still largely unresponsive with continued bilateral blepharospasm but was able to lightly squeeze fingers when asked. Just as Ativan was being pushed, patient abruptly became responsive again but still could not open his eyes. Patient was able to recall much of the conversation that went on around him during period of unresponsiveness - he described it as feeling as though he had "been drugged," could hear but not respond. In total, unresponsive episode lasted >60 minutes. Underlying diagnosis remains unclear; ?if this episode was at least partly due to iatrogenic oversedation, in addition to elevated blood pressure +/- a psychogenic component. Suspect resolution of sx occurring at the same time that Ativan was given was most likely coincidence; the response time was too fast, even for an IV medication. With SBP >140, PO clonidine .1mg administered. PM doses of Depakote and Baclofen held. Transfer to [facility] floor canceled to allow for closer monitoring overnight.
[2025-01-20] MEDS: hydrALAZINE HCL 20 MG/ML VIAL IV ONE (19:34)
[2025-01-20] MEDS: LORazepam 2 MG/1 ML VIAL IV PRN (20:28)
[2025-01-20] MEDS: BACLOFEN 20 MG TAB PO SCH (20:34)
--- NOTE | 2025-01-21 06:53 | Hospitalist Progress Note ---
Date of Service January 21, 2025 Assessment & Plan (1) Recurrent episodes of unresponsiveness: (2) Spasm eyelid: (3) Muscle spasms of neck: (4) Mass of left side of neck: Plan Patient is a 59 yo M w/ a PMHx of CKD 3b, IgA nephropathy, Buerger syndrome, HTN, left-sided neck mass, gout and recurrent syncope who presents for evaluation of ongoing episodes of unresponsiveness. Patient had negative ED workup 01/09 for same symptoms (CT Head, CT Neck, EKG, troponin negative). Notes episodes of neck twitching/fasciculations followed by inability to open his eyes and unresponsiveness for 30 - 60 minutes. Eye involvement started ~ 2 months ago, saw Ophthalmology and was placed on steroid eye drops. Patient noting associated left posterior neck spasms. 1) Episodic Unresponsive Episodes - Hemodynamically stable on room air - Patient w/ history of traumatic brain injury requiring management at tertiary care (2016), TIAs, and prior syncopal events - Extensive workup for PRES vs seizures in 2021 d/t similar episode Noted to have negative Brain MRI and Holter Monitor - Reported to worsen w/ HTN, though uncertain if HTN is Sx of episodes Episodes typically resolve with Clonidine, but one did not - CBC/CMP unremarkable, Lyme screen negative, ESR/CRP mildly elevated, ESR 27, CRP 1.17 on admission - EKG/telemetry/troponin unremarkable, asymptomatic from cardiac standpoint - CXR, CT Head/Neck w/o contrast unremarkable - MRI Brain w/o contrast unremarkable - Above imaging not consistent with differentials of PRES or SAUSAGE MACHINE OPERATOR vasculitis - Had another syncopal-like episode last night and again this morning but w/out lightheadedness or real loss of consciousness, no recommendations from Neurology to do an EEG to monitor for seizure-like activity 2) Cervical Dystonia/Blepharospasm - Patient with apparent acute ptosis w/ blepharospasms Myasthenia gravis panel ordered, pending ESR not diagnostic for Giant Cell Arteritis Follow ESR, 27 --> 29; CRP, 1.17 --> 1.39 - Consultation to Neurology, appreciated recommendations - Continue Neuro checks Q4h, Ativan remains available PRN - Differential remains broad and includes autoimmune vs neurologic vs amitriptyline AE vs Parkinsons vs psychogenic Neurology DDx includes myasthenia gravis vs. Meige (Brueghel) syndrome; MG Ab workup is pending at [facility] and [facility] Patient noted to be taking multiple unspecified herbs for symptom relief, unclear correlation catnip, oxeye trudy, Sleepytime tea Discontinued valproic acid, 500 mg, PO, BID and baclofen, 10 mg, PO, TID (increased to 20 mg) d/t syncopal-like event Patient w/ scheduled outpt Neurology appt where other Tx may be considered including Botox injections Will start clonazepam, 0.5 mg, TID per Neuro recommendations 3) Neck mass - Palpable, Left posterior cervical neck mass - Superficial, mobile - Not noted on soft tissue CT Neck 01/09 - Patient noting increase over last week States chiropractor has noted growth over last few months - Appears superficial/connected to subcutaneous tissue or fat on CTA - Can consider soft tissue US if needed for characterization 4) IgA nephropathy/Chopra's Disease Cr up from baseline, 2.04 --> 2.95, started LR, IV, 125 mL/hr - Holding Farxiga during inpatient stay (not available thru hospital) - Syncope can be a symptom of IgA Nephropathy/dehydration though renal status appears stable - Discussed use of IV contrast w/ Nephrology, minimal risk if done alongside IVFs Limit use of contrast when possible 5) HTN Reported BP of 230/110 at home, patient took Clonidine - Continue amlodipine, lisinopril, Lasix, and clonidine - Follow closely inpatient 6) Gout - stable, Continue allopurinol 6) Depression Continue amitriptyline - dystonia/spasms could be a side effect of amitriptyline and remains within differential but less likely VTE ppx: SCDs, low risk and OBS status; if prolonged stay, consider chemical ppx Dispo: PCU given unresponsive episode Code status: Full code Admission and Anticipated Discharge Date Admission Date: January 20, 2025 Supervising Physician Co-Signing Physician Notes I personally examined the patient and verified ye points of history and exam, discussed case, and agree with decision making and plan documented by Dr. Oliver. Patient without relief with baclofen and valproic acid, will discontinue. Monitor kidney function closely. Agree with trial of clonazepam per neurology recommendations. Striated muscle antibody and acetylcholine receptor binding antibody pending. No updates on [facility] testing. Awaiting authorization for patient to see neurologist for follow-up. Subjective Patient is a 59 yo M w/ a PMHx of gout, IgA nephropathy/Chopra's dz, CKD-stage 3, HTN, GERD, prediabetes, Hx of TIA, presented for unresponsive event lasting 30-60 minutes, he notes this has occurred before, but it has been years since the last episode. Patient also noted over the last 2 months has has developed left-sided neck, face, and eye spasms. He now notes that today, he is unable to keep his eyes open, left more so than right, but drinking something cold allows him to briefly open his eyes. He endorses pain in the left eye and neck. Patient had an overnight syncopal event, where he apparently lost awareness for an hour and a half, while his BP was somewhat elevated (as pt had noted before). He was able to squeeze the provider's hands during this episode and recalled things people had said during this time after later after he became more alert, following hydralazine admission. Patient seen and evaluated again at bedside this morning, initially seemingly very lethargic, confused with somewhat unintelligible mutterings, did not seem to answer questions appropriately, said he felt very tired but eventually was able to demonstrate that he was AAO x 4, said that he often has strong reactions to new medications and this could be why he felt really tired last night and again this morning. Review of Systems Constitutional: no fever, no chills, no body aches and no fatigue Eyes: + eye pain (left-sided eye pain) Respiratory: no cough and no dyspnea Cardiovascular: no chest pain and no palpitations Neurologic: + paralysis (difficult time opening eyes , particularly on l. side) and + abnormal movements; no tingling, no numbness and no headache(s) Physical Exam Constitutional: WD/WN, vitals as above Eyes: + eyelid abnormality, PERRL, normal acco mmodation and EOM intact bilaterally Neck: + abnormal visual inspection (left poste rior l. mass) Respiratory: normal respiratory effort, lungs clear to auscultation Cardiovascular: RRR, no murmur, no edema Gastrointestinal (Abdomen): normal bowel sounds, soft, nontender, no hepatosplenomegaly Neurologic: moves all extremities and awake Motor/Sensory: + abnormal movement (blepharospasms of l. eye) Cranial Nerves: PERRL, normal accommodation, EOM intact bilaterally (intact to exam after drinking cold water), tongue midline, normal hearing, able to elevate shoulders bilaterally and no nystagmus Psychiatric: A+Ox3, euthymic affect Results & Data Results & Data Vital Signs (Past 12 Hours) Vital Signs Temp Pulse Resp BP Pulse Ox O2 Del Method 01/21/25 03:05 36.6 C 70 16 104/68 94 Room Air 01/20/25 22:53 36.4 C L 76 16 116/65 92 Room Air 01/20/25 20:16 92 H 14 144/83 H 93 Room Air 01/20/25 19:05 36.6 C 97 H 16 171/84 H 94 Room Air Resident Activity Tracking Resident Involvement: Resident Care Provided Care Provided: Adult Hospital Medicine
[2025-01-21 07:30] LABS: Creatinine Clr Calc Pharmacy 30.4 ml/min
[2025-01-21] MEDS: LACTATED RINGER'S 1,000 ML IV SCH (17:29)
--- NOTE | 2025-01-21 17:47 | Neurology Progress Note ---
Date of Service January 21, 2025 Assessment & Plan (1) Blepharospasm of both eyes: (2) Episode of transient neurologic symptoms: Plan 59-year-old male with a 3-month history of blepharospasm, initially involving the left eyelid musculature, now the right, although the left side is much more involved. He has an associated "Geste antagoniste" or sensory trick to alleviate his focal dystonia, drinking cold liquids and eating food. The sensory tricks provide only transient relief, but are fairly reproducible at this time. Botulinum toxin injections into the eyelids and eyebrows are the treatment of choice for this condition. I do not think we could provide this treatment op tion as an inpatient, however. Dr. Li can provide this treatment in the outpatient setting. There are not many oral medication options that reliably treat this condition. However, clonazepam, lorazepam, or diazepam can be utilized. There is no standardized dosing protocol. Would recommend a trial of clonazepam 0.5 mg every 8 hours. Would discontinue valproic acid. Further, after reading through Dr. Bowman's description of last night's episode, I do not believe he experienced syncope or a seizure. The episode was odd, patient was not responding to verbal stimuli, he was mumbling, withdrawing to painful stimuli, had bilateral blepharospasm at that time. The episode abated with hydralazine and lorazepam. He had normal recollection of the conversation that went on around him at that time. I also reviewed the emergency department note from January 17 which describes a similar episode that resolved with lorazepam. I do not believe this episode was due to syncope, as labeled. There is no description of any type of collapse, fall, lightheadedness, or other characteristic syncopal symptoms. I do not think an EEG would be very useful at this time. These episodes may be related to stress or anxiety. Admission and Anticipated Discharge Date Admission Date: January 20, 2025 Subjective Follow-up regarding focal dystonia, blepharospasm, unresponsive episode? The patient is a 59-year-old male who began experiencing involuntary eyelid closure about 3 months ago, primarily the left eye. The right eye subsequently became involved. He has associated involuntary contraction of the extensor muscles of the neck which he believes occurs in response to trying to open his eyelids. His involuntary eyelid closure has become a fairly persistent problem. Interestingly, he has found that drinking cold liquids and sometimes eating food can temporarily alleviate the abnormal eyelid closure. He recalls that around the time of symptom onset, touching the side of his face would sometimes alleviate the eyelid closure. He has a history of stage IIIb chronic kidney disease, IgA nephropathy, hypertension and gout. He also relays a history of remote head injury. He is on multiple medications for control of hypertension. I independently reviewed his recently completed brain MRI, on January 18, 2025. There is no evidence of acute stroke or chronic microhemorrhage. There is no hydrocephalus or Chiari malformation. No focal midbrain or cerebellar atrophy. Brain parenchyma normal. No evidence of demyelinating disease or neoplasm. CT angiography of the head and neck are normal. He had an episode of unresponsiveness last night in the context of bilateral blepharospasm. He was mumbling and withdrawing to noxious stimulation at that time. Vital signs appeared stable. His blood pressure was mildly elevated, he was treated with IV hydralazine and lorazepam. It was noted that he was able to recall much of the conversation that occurred around him during that period of unresponsiveness. The episode lasted greater than 60 seconds according to the overnight hospitalist at that time. Results & Data Vital Signs (Past 12 Hours) Vital Signs Temp Pulse Pulse Resp BP BP Pulse Ox 01/21/25 15:28 36.3 C L 85 18 107/71 95 01/21/25 15:19 83 01/21/25 12:47 89 18 106/66 93 01/21/25 11:01 36.5 C 84 18 96/62 L 95 01/21/25 07:45 01/21/25 07:00 36.7 C 65 17 146/82 H 91 O2 Del Method 01/21/25 15:28 Room Air 01/21/25 15:19 01/21/25 12:47 Room Air 01/21/25 11:01 Room Air 01/21/25 07:45 Room Air 01/21/25 07:00 Room Air Exam (Neuro) Constitutional: well developed; no acute distress Eyes: normal visual nicole by confrontation, + eyelid abnormality (Bilateral, left greater than right blepharospasm noted.), PERRL and EOM intact bilaterally Neurologic: Oriented to:: Person, Place and Time Memory: Short Term Intact and Remote Intact Attention: Span Intact and Concentration Intact Speech Fluency: negative Dysarthria or Dysfluency Speech Aphasia: negative Aphasia Fund of Knowledge: Current Events, Past History and Vocabulary Cranial Nerves: Normal II, III, IV, , V, VII, VIII, IX, X, XI and XII Motor Strength: Normal Lower Extremities and Normal Upper Extremities Motor Tone: Normal Lower Extremities and Normal Upper Extremities Muscle Bulk/Involuntary Movements: negative Muscle Atrophy, Intention Tremor, Rest Tremor (Arm), Action Tremor or Head Tremor Sensation: Light Touch Intact, Pain/Temperature Intact and Proprioception Intact Coordination: negative Finger-Nose Abnormal or Heel-Johns Abnormal Details: As above, left greater than right blepharospasm, I greater difficulty opening the left eyelids compared to the right. There is no ptosis. There is no ophthalmoplegia. There is no facial weakness. During episodes of blepharospasm he will sometimes move his head and contract the cervical musculature while attempting to open his eyelids. When drinking cold liquid, his eyelids spontaneously open, only for 10 seconds or so. Drinking cold liquid again induces eyelid opening. Eating hot food on his plate also briefly induces eyelid opening. Touching his face or chin did not alleviate the involuntary eyelid closure. Coding Level of Care Code 61971 SUB INP/OBS CARE 350MIN Diagnoses Blepharospasm of both eyes G24.5 Episode of transient neurologic symptoms R29.90 Time Spent (min) 60 Comment Total time includes patient contact, chart review, counseling, note preparation
[2025-01-21 18:22] LABS: Babesia microti DNA Not Detected (Not Detected)
[2025-01-21] MEDS ORDERED: clonazePAM 0.5 MG TAB PO PRN (18:30)
[2025-01-21] MEDS ORDERED: Nursing to Pharmacy Communication SCH (21:45)
--- NOTE | 2025-01-22 07:31 | Hospitalist Progress Note ---
Date of Service January 22, 2025 Assessment & Plan (1) Recurrent episodes of unresponsiveness: (2) Spasm eyelid: (3) Muscle spasms of neck: (4) Mass of left side of neck: Plan Patient is a 59 yo M w/ a PMHx of CKD 3b, IgA nephropathy, Buerger syndrome, HTN, left-sided neck mass, gout and recurrent syncope who presents for evaluation of ongoing episodes of unresponsiveness. Patient had negative ED workup 01/09 for same symptoms (CT Head, CT Neck, EKG, troponin negative). Notes episodes of neck twitching/fasciculations followed by inability to open his eyes and unresponsiveness for 30 - 60 minutes. Eye involvement started ~ 2 months ago, saw Ophthalmology and was placed on steroid eye drops. Patient noting associated left posterior neck spasms. 1) Episodic Unresponsive Episodes - Hemodynamically stable on room air - Patient w/ history of traumatic brain injury requiring management at tertiary care (2016), TIAs, and prior syncopal events - Extensive workup for PRES vs seizures in 2021 d/t similar episode Noted to have negative Brain MRI and Holter Monitor - Reported to worsen w/ HTN, though uncertain if HTN is Sx of episodes Episodes typically resolve with Clonidine, but one did not - CBC/CMP unremarkable, Lyme screen negative, ESR/CRP mildly elevated, ESR 27, CRP 1.17 on admission - EKG/telemetry/troponin unremarkable, asymptomatic from cardiac standpoint - CXR, CT Head/Neck w/o contrast unremarkable - MRI Brain w/o contrast unremarkable - Above imaging not consistent with differentials of PRES or BUILDING MAINTENANCE ENGINEER vasculitis - Had syncopal-like episodes three times since admission but w/out lightheadedness or real loss of consciousness, no recommendations from Neurology to do an EEG to monitor for seizure-like activity - d/t pt's syncope-like episodes, pt cannot use a walker or cane safely and a wheelchair would improve the patient's ADL's in the home 2) Cervical Dystonia/Blepharospasm - Patient with apparent acute ptosis w/ blepharospasms Myasthenia gravis panel ordered, pending ESR not diagnostic for Giant Cell Arteritis Follow ESR, 27 --> 29; CRP, 1.17 --> 1.39 - Consultation to Neurology, appreciated recommendations - Continue Neuro checks Q4h, Ativan remains available PRN - Differential remains broad and includes autoimmune vs neurologic vs amitriptyline AE vs Parkinsons vs psychogenic Neurology DDx includes myasthenia gravis vs. Meige (Brueghel) syndrome; MG Ab workup is pending at [facility] Patient noted to be taking multiple unspecified herbs for symptom relief, unclear correlation catnip, oxeye trudy, Sleepytime tea Discontinued valproic acid, 500 mg, PO, BID and baclofen, 10 mg, PO, TID (increased to 20 mg) d/t syncopal-like event Patient w/ scheduled outpt Neurology appt where other Tx may be considered including Botox injections Continue clonazepam, 0.5 mg, BID, slightly lower dosage per Neuro recommendations 3) Neck mass - Palpable, Left posterior cervical neck mass - Superficial, mobile - Not noted on soft tissue CT Neck 01/09 - Patient noting increase over last week States chiropractor has noted growth over last few months - Appears superficial/connected to subcutaneous tissue or fat on CTA - Can consider soft tissue US if needed for characterization 4) IgA nephropathy/Chopra's Disease Cr up from baseline, 2.04 --> 2.95 --> 2.31, started LR, IV, 125 mL/hr - Holding Farxiga during inpatient stay (not available thru hospital) - Syncope can be a symptom of IgA Nephropathy/dehydration though renal status appears stable - Discussed use of IV contrast w/ Nephrology, minimal risk if done alongside IVFs Limit use of contrast when possible 5) HTN Reported BP of 230/110 at home, patient took Clonidine - Continue amlodipine, lisinopril, Lasix, and clonidine - Follow closely inpatient 6) Gout - stable, Continue allopurinol 6) Depression Continue amitriptyline - dystonia/spasms could be a side effect of amitriptyline and remains within differential but less likely VTE ppx: SCDs, low risk and OBS status; if prolonged stay, consider chemical ppx Dispo: PCU given unresponsive episode Code status: Full code Admission and Anticipated Discharge Date Admission Date: January 20, 2025 Supervising Physician Co-Signing Physician Notes I personally examined the patient and verified ye points of history and exam, discussed case, and agree with decision making and plan documented by Dr. Oliver. Kidney function improved. Continue clonazepam 0.5 mg BID for spasms. Heat also helpful per patient. Striated muscle antibody and acetylcholine receptor binding antibody pending. No updates on [facility] testing. Awaiting authorization for patient to see neurologist for follow-up to consider botox injections. Patient felt lightheaded and endorsed near syncopal episode when walking with his in the hallway, denies trauma, states this has happened many times in the past. Will check orthostatics and physical therapy evaluation prior to discharge considerations. Discussed hospital course thus far and plans for possible discharge tomorrow with patient, his , and his son in the room today. Patient and are requesting a wheelchair on discharge in case he has additional near syncopal episodes. Subjective Patient is a 59 yo M w/ a PMHx of gout, IgA nephropathy/Chopra's dz, CKD-stage 3, HTN, GERD, prediabetes, Hx of TIA, presented for unresponsive event lasting 30-60 minutes, he notes this has occurred before, but it has been years since the last episode. Patient also noted over the last 2 months has has developed left-sided neck, face, and eye spasms. He now notes that today, he is unable to keep his eyes open, left more so than right, but drinking something cold allows him to briefly open his eyes. He endorses pain in the left eye and neck. Patient had an overnight syncopal event, where he apparently lost awareness for an hour and a half, while his BP was somewhat elevated (as pt had noted before). He was able to squeeze the provider's hands during this episode and recalled things people had said during this time after later after he became more alert, following hydralazine admission. Patient seen and evaluated again at bedside this morning, initially seemingly very lethargic, confused with somewhat unintelligible mutterings, did not seem to answer questions appropriately, said he felt very tired but eventually was able to demonstrate that he was AAO x 4, said that he often has strong reactions to new medications and this could be why he felt really tired last night and again this morning. Review of Systems Constitutional: no fever, no chills, no body aches and no fatigue Eyes: + eye pain (left-sided eye pain) Respiratory: no cough and no dyspnea Cardiovascular: no chest pain and no palpitations Neurologic: + paralysis (difficult time opening eyes , particularly on l. side) and + abnormal movements; no tingling, no numbness and no headache(s) Physical Exam Constitutional: WD/WN, vitals as above Eyes: + eyelid abnormality, PERRL, normal acco mmodation and EOM intact bilaterally Neck: + abnormal visual inspection (left poste rior l. mass) Respiratory: normal respiratory effort, lungs clear to auscultation Cardiovascular: RRR, no murmur, no edema Gastrointestinal (Abdomen): normal bowel sounds, soft, nontender, no hepatosplenomegaly Neurologic: moves all extremities and awake Motor/Sensory: + abnormal movement (blepharospasms of l. eye) Cranial Nerves: PERRL, normal accommodation, EOM intact bilaterally (intact to exam after drinking cold wate r), tongue midline, normal hearing, able to elevate shoulders bilaterally and no nystagmus Psychiatric: A+Ox3, euthymic affect Results & Data Results & Data Vital Signs (Past 12 Hours) Vital Signs Temp Pulse Pulse Resp BP Pulse Ox O2 Del Method 01/22/25 02:59 36.4 C L 72 16 118/73 95 Room Air 01/21/25 22:59 36.5 C 75 18 115/68 94 Room Air 01/21/25 21:54 73 01/21/25 20:07 82 110/69 Resident Activity Tracking Resident Involvement: Resident Care Provided Care Provided: Adult Hospital Medicine
[2025-01-22] MEDS: clonazePAM 0.5 MG TAB PO SCH ×2 (08:36→20:21)
[2025-01-22 09:39] LABS: BUN Creatinine Ratio 19.7 (10-20); Calcium 8.6 mg/dl (8.6-10.3); Creatinine Clr Calc Pharmacy 36.8 ml/min; Potassium 4.5 mmol/L (3.5-5.1)
--- NOTE | 2025-01-22 13:03 | Discharge Summary ---
Date of Service January 22, 2025 Admission HPI Per Admitting Provider Patient is a 59-year-old male with past medical history of CKD, IgA nephropathy, HTN. Patient has had ongoing complaints of neck twitching in which he cannot open his eyes, he has been admitted for this in the past and was just evaluated in the ED 01/09 which essentially showed a negative workup including head CT and soft tissue neck CT. This evening patient had his similar neck twitching being unable to open his eyes however this was associated with a 30-minute - 1 hr unresponsive episode which he has not had for several months. Workup in the ED essentially negative, EKG showed NSR, troponin negative. Patient seen at bedside with his present. Patient stated he did feel this coming on as he had weakness and his body got warm. He was able to sit in a chair and denies any head strike or collapse with the syncopal episode. He typically takes clonidine when his blood pressure is elevated which prevents these unresponsive episodes. Patient stated approximately 2 months ago he began with neck twitching she cannot open his eyes. He was evaluated by an dining room attendant cafeteria that thought this was secondary to dry eyes and gave him eyedrops, which did not seem to help. Patient also has a lump on the left side of his posterior neck which he had on 01/09 on evaluation in the ED in which soft tissue neck CT was negative, however patient stated it is increasing in size. Patient is greatly concerned because during his episode his close 230/110 and his glucose was 230, he has no history of DM. patient stated he feels fine now, denies headaches or dizziness. He is still having eye twitching however it greatly improved after receiving Ativan in the ED. 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 not following with any neurologist, as he has been unable to get an appointment. Patient believes his symptoms are not related to a stroke or cardiac in origin. He is getting concerned as his symptoms are getting worse in the episode today and would like some answers as to why this is happening. He stated the whole left side of his head is weak, however denies any numbness or tingling. He stated it feels heavy. Patient stated he gets sensitivity to warm or cold food and drinks as it spent sends a spasm through the left side of his face and head. He denies any infectious symptoms like runny nose, sore throat, cough, congestion, dysuria, abdominal pain. He denies nicotine use. He does not use any oxygen at baseline. He is due for his evening medications. He wishes to be full code. Patient stated he has been controlling his spasms at home with melatonin and herbal tea. Patient has had workup during admissions for this in the past which was contributory to psychogenic nonepileptic seizures associated with elevated blood pressure. He had had MRI in 2021 which was negative. Holter monitor in 2022 only showed sinus tachycardia. He would benefit from neurology outpatient. Admission Exam Per Admitting Provider Physical Exam: The patient is awake, alert and oriented 3, well developed and well nourished, normocephalic and atraumatic, in no acute distress. Non-toxic appearing. HEENT- EOMI, mucous membranes dry. Hearing grossly intact. Eyes twitching frequently on exam. Heart-normal S1 and S2. No murmurs, rubs or gallops. Lungs-clear bilaterally, no respiratory distress, no accessory muscle use. Abdomen-normal bowel sounds and soft. No ascites noted. Non-tender. Extremities- no clubbing, cyanosis, or edema. Rheumatologic-normal range of motion. Psychiatric-anxious affect. Neck: + neck tender Left neck tender to pal pation with inflamed posterior soft mass Principal Diagnosis blepharospasm, focal dystonia Discharge Exam Constitutional WD/WN, vitals as above Eyes + eyelid abnormality, PERRL, normal accommodation and EOM intact bilaterally Neck + abnormal visual inspection (left posterior l. mass) Respiratory normal respiratory effort, lungs clear to auscultation Cardiovascular RRR, no murmur, no edema Gastrointestinal (Abdomen) normal bowel sounds, soft, nontender, no hepatosplenomegaly Neurologic moves all extremities and awake Motor/Sensory: + abnormal movement (blepharospasms of l. eye) Cranial Nerves: PERRL, normal accommodation, EOM intact bilaterally (intact to exam after drinking cold water), tongue midline, normal hearing, able to elevate shoulders bilaterally and no nystagmus Psychiatric A+Ox3, euthymic affect Discharge Data Allergies Allergy/AdvReac Type Severity Reaction Status Date / Time NSAIDS (Non-Steroidal AdvReac Intermediate Due to Verified 01/17/25 19:02 Anti-Inflamma patient Kidney disease- not supposed to take Consultations 01/17/25 19:44 ED Decision to Admit Stat 01/19/25 13:47 Consult Neurology Routine 01/21/25 11:05 Consult Neurology Routine Ordered Studies 01/18/25 07:34 CT angio chest w con Stat CT angio neck with con Stat CTA head wo/w [CT angio head wo/w] Stat 01/18/25 09:44 MRI Brain [MR brain wo con] Urgent Hospital Course (1) Recurrent episodes of unresponsiveness: (2) Spasm eyelid: (3) Muscle spasms of neck: (4) Mass of left side of neck: Plan Patient is a 59 yo M w/ a PMHx of CKD 3b, IgA nephropathy, Buerger syndrome, HTN, left-sided neck mass, gout and recurrent syncope who presents for evaluation of ongoing episodes of unresponsiveness. Patient had negative ED workup 01/09 for same symptoms (CT Head, CT Neck, EKG, troponin negative). Notes episodes of neck twitching/fasciculations followed by inability to open his eyes and unresponsiveness for 30 - 60 minutes. Eye involvement started ~ 2 months ago, saw Ophthalmology and was placed on steroid eye drops. Patient noting associated left posterior neck spasms. 1) Cervical Dystonia/Blepharospasm - Patient with apparent acute ptosis w/ blepharospasms Myasthenia gravis panel ordered, still pending ESR not diagnostic for Giant Cell Arteritis Follow ESR, 27 --> 29; CRP, 1.17 --> 1.39 - Consultation to Neurology, appreciated recommendations - Continue Neuro checks Q4h, Ativan remains available PRN - Differential remains broad and includes autoimmune vs neurologic vs amitriptyline AE vs Parkinson's vs psychogenic Neurology DDx includes myasthenia gravis vs. Meige (Brueghel) syndrome; MG Ab workup is pending at [facility] and [facility] Patient noted to be taking multiple unspecified herbs for symptom relief, unclear correlation catnip, oxeye trudy, Sleepytime tea Discontinued valproic acid, 500 mg, PO, BID and baclofen, 10 mg, PO, TID (increased to 20 mg) d/t syncopal-like event Patient w/ be scheduled outpt Neurology appt where other Tx may be considered including Botox injections Will start clonazepam, 0.5 mg, TID per Neuro recommendations and Rx as outpt 2) Episodic Unresponsive Episodes - Hemodynamically stable on room air - Patient w/ history of traumatic brain injury requiring management at tertiary care (2017), TIAs, and prior syncopal events - Extensive workup for PRES vs seizures in 2021 d/t similar episode Noted to have negative Brain MRI and Holter Monitor - Reported to worsen w/ HTN, though uncertain if HTN is Sx of episodes Episodes typically resolve with Clonidine, but one did not - CBC/CMP unremarkable, Lyme screen negative, ESR/CRP mildly elevated, ESR 27, CRP 1.17 on admission - EKG/telemetry/troponin unremarkable, asymptomatic from cardiac standpoint - CXR, CT Head/Neck w/o contrast unremarkable - MRI Brain w/o contrast unremarkable - Above imaging not consistent with differentials of PRES or FULL TIME PARAMEDIC vasculitis - Had a second syncopal-like episode during stay and again this morning but w/out lightheadedness or real loss of consciousness, Neurology does not feel an EEG to monitor for seizure-like activity is indicated 3) Neck mass - Palpable, Left posterior cervical neck mass - Superficial, mobile - Not noted on soft tissue CT Neck 01/09 - Patient noting increase over last week States chiropractor has noted growth over last few months - Appears superficial/connected to subcutaneous tissue or fat on CTA - Can consider soft tissue US if needed for characterization 4) IgA nephropathy/Chopra's Disease Cr up from baseline, 2.04 --> 2.95 --> started LR, IV, 125 mL/hr - Holding Farxiga during inpatient stay (not available thru hospital) - Syncope can be a symptom of IgA Nephropathy/dehydration though renal status appears stable - Discussed use of IV contrast w/ Nephrology, minimal risk if done alongside IVFs Limit use of contrast when possible 5) HTN Reported BP of 230/110 at home, patient took Clonidine - Continue amlodipine, lisinopril, Lasix, and clonidine - Follow closely inpatient 6) Gout - stable, Continue allopurinol 6) Depression Continue amitriptyline - dystonia/spasms could be a side effect of amitriptyline and remains within differential but less likely Discharge Plan Discharge Items Patient Disposition: Home - Self-Care Reason For Visit: UNRESPONSIVE EPISODE, NECK SPASM Discharge Diagnosis: blepharospasm, neck spasm Condition on Discharge: Fair Activity: As commented below Activity Comment: physical activity as tolerated d/t functional blindness w/ current ptosis Non-emergency contact: Primary Care Provider and Neurologist Call non-emergency contact if: you have any medication questions and your symptoms worsen Follow-up/Referrals: Rosales Egan MD [Primary Care Provider] - Diet: Regular Addtl Attending Provider Instructions: You were admitted to the hospital for severe eye twitches (blepharospasms), neck spasms, accompanied by a recent syncopal episode. You were treated with valproic acid, baclofen during inpatient stay along with Ativan while in the ER. A discharge summary will be sent to your primary care physician to ensure continuity of care. Please bring this discharge summary with you to your next office appointment so that your provider can review it at that time. Follow-up appointments: We have requested a follow-up appointment with your primary care physician at the [facility] within one week of discharge. Please call their office if you do not hear from them. We have requested a follow-up appointment with an outpatient neurologist within a few weeks of discharge. Please call their office if you do not hear from them. Keep all your follow-up appointments as already scheduled. If you cannot make an appointment, notify your provider. Medications: Your medication list has been reviewed and reconciled upon discharge to ensure accuracy and continuity of care. An updated list of all your medications is included with your hospital discharge paperwork. Please review this list closely, and make note of any changes. We sent a new medication called Depakote (valproic acid) to your pharmacy. Take Depakote, 500 mg/1 tablet, twice a day, to help relieve the blepharospasms. Take your medications as instructed; do not skip a dose of your medicines. Make sure all of your doctors know every medicine you are taking (including jwmr-[id number]-[id number] medicines, vitamins, and supplements). Call your primary care provider before taking any new medicines (including [id number]-[id number] medicines, vitamins, and supplements), because some of these may interact with your current medications, or may make your symptoms worse. Tell your primary care provider if you cannot afford your medications. CONTACT YOUR PRIMARY CARE PROVIDER if you experience any of the following: syncopal episodes (episodes of passing out or losing consciousness) blepharospasms, neck spasms, especially that aren't improving with medication Difficulty following your treatment plan, or difficulty taking medications CALL 911 OR GO TO THE EMERGENCY DEPARTMENT if you experience any of the following: Sudden, severe abdominal pain or nausea/vomiting Severe chest pain, or chest pain that radiates (moves) to your jaw or arm Sudden, severe shortness of breath or difficulty breathing Thank you for allowing us to participate in your care Pending Studies at Discharge: Yes Studies:: myasthenia gravis Ab panel Stand-Alone Forms: [facility], Smoking Cessation Medications and DC Order Prescriptions: Continued furosemide 20 mg tablet 20 mg PO Q OTHER DAY Qty: 17 1RF amlodipine 5 mg tablet 5 mg PO QPM allopurinol 300 mg tablet 300 mg PO QAM Qty: 90 1RF Rx Instructions: Take 1 tablet by mouth once daily amitriptyline 10 mg tablet 10 mg PO HS clonidine HCl 0.1 mg tablet 0.1 mg PO QAM MDD 0.3mg/24hr Rx Instructions: administer ADDITIONAL PO up to 3 times if BP is 140 or > systolic famotidine 20 mg Tablet 20 mg PO HS cholecalciferol (vitamin D3) [Vitamin D3] 25 mcg (1,000 unit) Capsule 50 mcg PO QAM ondansetron 4 mg tablet,disintegrating 4 mg PO Q6H PRN (Reason: nausea and vomiting) Qty: 10 0RF calcium carbonate-vitamin D3 600 mg-5 mcg (200 unit) Tablet 1 tab PO QAM lisinopril [Zestril] 40 mg tablet 40 mg PO QAM dapagliflozin propanediol [Farxiga] 10 mg tablet 10 mg PO QAM omega-3 fatty acids 1,000 mg Capsule 2,000 mg PO BID diazepam [Valium] 2 mg tablet 2 mg PO BID PRN (Reason: anxiety) Qty: 10 0RF Admission Data Admit Date/Time: 01/20/25 08:44 Attending Provider: January Basurto Admit Provider: Marybeth Alcala Primary Care Provider: Rosales Egan Other Providers: Marybeth Alcala; [facility]; Alonso Urbina; Eugene Burns; Nathaly Rehman; Maryellen Little; Lilian Cisneros; Jamie Li
[2025-01-22 13:49] LABS: BUN Creatinine Ratio 19.9 (10-20); Calcium 8.8 mg/dl (8.6-10.3); Creatinine Clr Calc Pharmacy 38.8 ml/min; Potassium 4.6 mmol/L (3.5-5.1)
[2025-01-23 03:11] VITALS: RESP 19
--- NOTE | 2025-01-23 09:32 | Discharge Summary ---
Date of Service January 23, 2025 Admission HPI Per Admitting Provider Patient is a 59-year-old male with past medical history of CKD, IgA nephropathy, HTN. Patient has had ongoing complaints of neck twitching in which he cannot open his eyes, he has been admitted for this in the past and was just evaluated in the ED 01/09 which essentially showed a negative workup including head CT and soft tissue neck CT. This evening patient had his similar neck twitching being unable to open his eyes however this was associated with a 30-minute - 1 hr unresponsive episode which he has not had for several months. Workup in the ED essentially negative, EKG showed NSR, troponin negative. Patient seen at bedside with his present. Patient stated he did feel this coming on as he had weakness and his body got warm. He was able to sit in a chair and denies any head strike or collapse with the syncopal episode. He typically takes clonidine when his blood pressure is elevated which prevents these unresponsive episodes. Patient stated approximately 2 months ago he began with neck twitching she cannot open his eyes. He was evaluated by an fireworks assembly supervisor that thought this was secondary to dry eyes and gave him eyedrops, which did not seem to help. Patient also has a lump on the left side of his posterior neck which he had on 01/09 on evaluation in the ED in which soft tissue neck CT was negative, however patient stated it is increasing in size. Patient is greatly concerned because during his episode his close 230/110 and his glucose was 230, he has no history of DM. patient stated he feels fine now, denies headaches or dizziness. He is still having eye twitching however it greatly improved after receiving Ativan in the ED. 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 not following with any neurologist, as he has been unable to get an appointment. Patient believes his symptoms are not related to a stroke or cardiac in origin. He is getting concerned as his symptoms are getting worse in the episode today and would like some answers as to why this is happening. He stated the whole left side of his head is weak, however denies any numbness or tingling. He stated it feels heavy. Patient stated he gets sensitivity to warm or cold food and drinks as it spent sends a spasm through the left side of his face and head. He denies any infectious symptoms like runny nose, sore throat, cough, congestion, dysuria, abdominal pain. He denies nicotine use. He does not use any oxygen at baseline. He is due for his evening medications. He wishes to be full code. Patient stated he has been controlling his spasms at home with melatonin and herbal tea. Patient has had workup during admissions for this in the past which was contributory to psychogenic nonepileptic seizures associated with elevated blood pressure. He had had MRI in 2021 which was negative. Holter monitor in 2022 only showed sinus tachycardia. He would benefit from neurology outpatient. Admission Exam Per Admitting Provider Exam: The patient is awake, alert and oriented 3, well developed and well nourished, normocephalic and atraumatic, in no acute distress. Non-toxic appearing. HEENT- EOMI, mucous membranes dry. Hearing grossly intact. Eyes twitching frequently on exam. Heart-normal S1 and S2. No murmurs, rubs or gallops. Lungs-clear bilaterally, no respiratory distress, no accessory muscle use. Abdomen-normal bowel sounds and soft. No ascites noted. Non-tender. Extremities- no clubbing, cyanosis, or edema. Rheumatologic-normal range of motion. Psychiatric-anxious affect. Neck: + neck tender Left neck tender to pal pation with inflamed posterior soft mass Principal Diagnosis severe blepharospasm, recurrent unresponsive episodes Discharge Exam Constitutional: well appearing, no acute distress HEENT: normocephalic, eyes closed tightly CV: regular rhythm, regular rate, no murmur, no LE edema Respiratory: Clear to auscultation bilaterally. No rhonchi, wheezes, or crackles. No increased work of breathing MSK: no gross deformities noted Skin: warm, dry, no rashes Discharge Data Allergies Allergy/AdvReac Type Severity Reaction Status Date / Time NSAIDS (Non-Steroidal AdvReac Intermediate Due to Verified 01/17/25 19:02 Anti-Inflamma patient Kidney disease- not supposed to take Consultations 01/17/25 19:44 ED Decision to Admit Stat 01/19/25 13:47 Consult Neurology Routine 01/21/25 11:05 Consult Neurology Routine Ordered Studies 01/18/25 07:34 CT angio chest w con Stat IMPRESSION: 1. No evidence of thoracic aortic dissection or aneurysm. No evidence of vasculitis seen. 2. No pneumonia or pleural effusion. CT angio neck with con Stat CTA head wo/w [CT angio head wo/w] Stat IMPRESSION: 1. No acute findings. 2. No significant arterial narrowing or occlusion seen at the neck or brain. 01/18/25 09:44 MRI Brain [MR brain wo con] Urgent IMPRESSION: No evidence of acute infarction. Hospital Course (1) Recurrent episodes of unresponsiveness: Pt is a 59 yo M with a PMH of CKD 3b, IgA nephropathy, Buerger syndrome, HTN, left-sided neck mass, gout and recurrent syncope who presents for evaluation of ongoing episodes of unresponsiveness. Patient had negative ED workup 01/09 for same symptoms (CT Head, CT Neck, EKG, troponin negative). Notes episodes of neck twitching/fasciculations followed by inability to open his eyes and unresponsiveness for 30 - 60 minutes. Eye involvement started ~ 2 months ago, saw Ophthalmology and was placed on steroid eye drops. Patient noting associated left posterior neck spasms. 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), TIAs, and prior syncopal events - extensive workup for PRES vs seizures in 2021 d/t similar episodes (noted to have had negative brain MRI and holter monitor at that time) - pt reports his episodes are worse w/ HTN; episodes typically resolve with clonidine - blood work unrevealing; lyme screen negative, ESR/CRP mildly elevated - EKG/telemetry/troponin unremarkable, asymptomatic from cardiac standpoint - CXR, CTA head/neck/chest, brain MRI from this admission negative - had 3 unresponsive episodes this admission; he did not lose consciousness as he was able to hear what was happening around him; EEG performed not during acute episode- pending on discharge d/c technical complications - d/t unresponsive episodes, pt cannot use a walker or cane safely and a wheelchair would improve the patient's ADL's in the home; wheelchair ordered prior to discharge and PT discussed safety with pt prior to discharge - discharge to home with close outpatient PCP and neuro f/u Cervical dystonia/blepharospasm - pt with acute ptosis (started 2 mths ago) w/ blepharospasms; differential remains broad and includes autoimmune vs neurologic (MG, Meige, etc) vs idiopathic - myasthenia gravis panel ordered, pending on discharge - neuro consulted who recommended outpatient f/u with possible botox injections - of note, pt had been taking multiple unspecified herbs for symptom relief (catnip, oxeye trudy, sleeptime tea); unclear if there is correlation between herbs and symptoms - trialed valproic acid without improvement- discontinued; trialed baclofen which slightly improved symptoms but caused MARY- discontinued - will discharge with clonazepam 0.5mg BID for 10 days; pt has f/u scheduled with his PCP January 28 - d/t pt's severe blepharospasm and his inability to see, this has greatly affected his ability to ambulate safely; wheelchair ordered as above in addition to home PT Neck mass - palpable, superficial, mobile left posterior cervical neck mass; not noted on soft tissue CT 01/09 - per pt, chiropractor has noted growth over last few months - can consider soft tissue US if needed for characterization - recommend outpatient f/u IgA nephropathy/Chopra's Disease - Cr at baseline on admission - baclofen induced MARY which resolved after stopping baclofen - farxiga held during inpatient stay but may resume on discharge HTN - reported BP of 230/110 at home, patient took clonidine - continue amlodipine, lisinopril, lasix, and clonidine - recommend outpatient f/u for continued BP management - ? orthostatic hypotension contributing to lightheadedness/unsteadiness Gout - stable, w/o flare - continue allopurinol Depression - continue amitriptyline - dystonia/spasms could be a side effect of amitriptyline and remains within differential but seems less likely VTE ppx: SCDs, low risk Dispo: PCU given unresponsive episode; discharge home with close outpatient f/u Code: Full (2) Spasm eyelid: (3) Muscle spasms of neck: (4) Mass of left side of neck: Total Time Total Time Spent Total Time Spent (In Minutes): as per attending attestation Discharge Plan Discharge Items Patient Disposition: Home - Self-Care Reason For Visit: UNRESPONSIVE EPISODE, NECK SPASM Discharge Diagnosis: blepharospasm, neck spasm Condition on Discharge: Fair Activity: As commented below Activity Comment: physical activity as tolerated d/t functional blindness w/ current ptosis Non-emergency contact: Primary Care Provider and Neurologist Call non-emergency contact if: you have any medication questions and your symptoms worsen Follow-up/Referrals: Rosales Egan MD [Primary Care Provider] - Diet: Regular Addtl Attending Provider Instructions: You were admitted to the hospital for severe eye twitches (blepharospasms) and neck spasms, accompanied by a recent unresponsive episode. You were treated with valproic acid and baclofen during this inpatient stay along with Ativan while in the ER. The valproic acid was ineffective and the baclofen you should not take as it can adversely affect your kidneys. An EEG was performed which was negative and did not show any concerning signs of seizures, etc. A discharge summary will be sent to your primary care physician to ensure continuity of care. Please bring this discharge summary with you to your next office appointment so that your provider can review it at that time. Follow-up appointments: We have [facility] of discharge. Please call their office if you do not hear from them. You have an appointment with them January 28 (per your report). We have requested a follow-up appointment with an outpatient neurologist within a few weeks of discharge. Please call their office (or your [facility] contact) if you do not hear from them. Keep all your follow-up appointments as already scheduled. If you cannot make an appointment, notify your provider. Medications: Your medication list has been reviewed and reconciled upon discharge to ensure accuracy and continuity of care. An updated list of all your medications is included with your hospital discharge paperwork. Please review this list closely, and make note of any changes. We sent a new medication, clonazepam, to help relieve the blepharospasms. You can take this up to twice per day as needed. Discuss this medication further at your outpatient neurology follow up. Take your medications as instructed; do not skip a dose of your medicines. Make sure all of your doctors know every medicine you are taking (including cpmq-rss-[id number] medicines, vitamins, and supplements). Call your primary care provider before taking any new medicines (including gryv-dmn-txvkseg medicines, vitamins, and supplements), because some of these may interact with your current medications, or may make your symptoms worse. Tell your primary care provider if you cannot afford your medications. CONTACT YOUR PRIMARY CARE PROVIDER if you experience any of the following: syncopal episodes (episodes of passing out or losing consciousness) blepharospasms, neck spasms, especially that aren't improving with medication Difficulty following your treatment plan, or difficulty taking medications CALL 911 OR GO TO THE EMERGENCY DEPARTMENT if you experience any of the following: Sudden, severe abdominal pain or nausea/vomiting Severe chest pain, or chest pain that radiates (moves) to your jaw or arm Sudden, severe shortness of breath or difficulty breathing Pending Studies at Discharge: Yes Studies:: myasthenia gravis Ab panel Stand-Alone Forms: [facility] [employer], Smoking Cessation Medications and DC Order Prescriptions: New clonazepam 0.5 mg tablet 0.5 mg PO BID PRN (Reason: neck spasm) Qty: 20 0RF Continued furosemide 20 mg tablet 20 mg PO Q OTHER DAY Qty: 17 1RF amlodipine 5 mg tablet 5 mg PO QPM allopurinol 300 mg tablet 300 mg PO QAM Qty: 90 1RF Rx Instructions: Take 1 tablet by mouth once daily amitriptyline 10 mg tablet 10 mg PO HS clonidine HCl 0.1 mg tablet 0.1 mg PO QAM MDD 0.3mg/24hr Rx Instructions: administer ADDITIONAL PO up to 3 times if BP is 140 or > systolic famotidine 20 mg Tablet 20 mg PO HS cholecalciferol (vitamin D3) [Vitamin D3] 25 mcg (1,000 unit) Capsule 50 mcg PO QAM ondansetron 4 mg tablet,disintegrating 4 mg PO Q6H PRN (Reason: nausea and vomiting) Qty: 10 0RF calcium carbonate-vitamin D3 600 mg-5 mcg (200 unit) Tablet 1 tab PO QAM lisinopril [Zestril] 40 mg tablet 40 mg PO QAM dapagliflozin propanediol [Farxiga] 10 mg tablet 10 mg PO QAM omega-3 fatty acids 1,000 mg Capsule 2,000 mg PO BID diazepam [Valium] 2 mg tablet 2 mg PO BID PRN (Reason: anxiety) Qty: 10 0RF Discharge Orders: Discharge Order (Routine); Ordered 01/23/25 Ordered By: Rox Hanson Admission Data Admit Date/Time: 01/20/25 08:44 Attending Provider: January Basurto Admit Provider: Marybeth Alcala Primary Care Provider: Rosales Egan Other Providers: Marybeth Alcala; [facility]; Alonso Urbina; Eugene Burns; Nathaly Rehman; Maryellen Little; Lilian Cisneros; Jamie Li Other Interventions: Discharge Summary Assessment (RN) Last Done: 01/23/25 13:01 Supervising Physician Co-Signing Physician Notes I personally examined the patient and verified ye points of history and exam, discussed case, and agree with decision making and plan documented by Dr. Hanson. For continued blepharospasm, recommend continued clonazepam 0.5 mg BID prn. Ice and heat also helpful per patient. Striated muscle antibody and acetylcholine receptor binding antibody pending. No updates on [facility] testing at yesi e of discharge. EEG appeared normal today. Awaiting authorization for patient to see neurologist for follow-up to consider botox injections outpatient. Patient has follow-up with PCP at [facility] scheduled next week. He has an [facility]. Wheelchair script provided as patient having some difficulty ambulating with inability to open eyes. Total attending time 38 minutes. Resident Activity Tracking Resident Involvement: Resident Care Provided Care Provided: Adult Hospital Medicine
[2025-01-23 11:13] VITALS: BP 140/85; PULSE 86; TEMP 97.5; O2SAT 95
--- NOTE | 2025-01-23 15:23 | Electroencephalogram ---
EEG Procedure Note Date of Service January 23, 2025 Start / End Times Start Time: 7:22AM End Time: 7:42AM Referring Physician Benito History Episodes of diminished responsiveness Home Medication List Medication Instructions Recorded Confirmed Type amitriptyline 10 mg tablet 10 mg PO HS 12/06/22 01/17/25 History famotidine 20 mg tablet 20 mg PO HS 02/06/24 01/17/25 History clonidine HCl 0.1 mg tablet 0.1 mg PO QAM 02/11/24 01/17/25 History cholecalciferol (vitamin D3) 25 50 mcg PO QAM 03/20/24 01/17/25 History mcg (1,000 unit) capsule (Vitamin D3) ondansetron 4 mg disintegrating 4 mg PO Q6H PRN nausea and 03/20/24 01/17/25 Rx tablet vomiting #10 tabs furosemide 20 mg tablet 20 mg PO Q OTHER DAY #17 tabs 11/10/24 01/17/25 Rx amlodipine 5 mg tablet 5 mg PO QPM 11/18/24 01/17/25 History calcium 600 mg (as 1 tab PO QAM 12/22/24 01/17/25 History carbonate)-vitamin D3 5 mcg (200 unit) tablet dapagliflozin propanediol 10 mg 10 mg PO QAM 12/22/24 01/17/25 History tablet (Farxiga) lisinopril 40 mg tablet (Zestril) 40 mg PO QAM 12/22/24 01/17/25 History allopurinol 300 mg tablet 300 mg PO QAM #90 tabs 01/05/25 01/17/25 Rx diazepam 2 mg tablet (Valium) 2 mg PO BID PRN anxiety #10 tabs 01/09/25 01/17/25 Rx omega-3 fatty acids 1,000 mg 2,000 mg PO BID 01/17/25 01/17/25 History capsule clonazepam 0.5 mg tablet 0.5 mg PO BID PRN neck spasm #20 01/23/25 Rx tabs Inpatient Medication List Discontinued Medications Acetaminophen (Acetaminophen 325 Mg Tab) 650 mg PO Q4H PRN PRN Reason: Pain or Fever Stop: 02/16/25 22:19 Last Admin: 01/20/25 18:07 Dose: 650 mg Documented By: Admin: 01/17/25 23:34 Dose: 650 mg Documented By: SJM Allopurinol (Allopurinol 300 Mg Tab) 300 mg PO QAM NAHID Stop: 02/17/25 08:59 Last Admin: 01/23/25 09:36 Dose: 300 mg Documented By: AATaylor Admin: 01/22/25 08:32 Dose: 300 mg Documented By: Admin: 01/21/25 08:32 Dose: 300 mg Documented By: Admin: 01/20/25 09:19 Dose: 300 mg Documented By: Admin: 01/19/25 08:06 Dose: 300 mg Documented By: DLLoulou Admin: 01/18/25 09:59 Dose: 300 mg Documented By: Amitriptyline HCl (Amitriptyline Hcl 10 Mg Tab) 10 mg PO HS NAHID Stop: 02/16/25 22:19 Last Admin: 01/22/25 20:17 Dose: 10 mg Documented By: Admin: 01/21/25 20:08 Dose: 10 mg Documented By: Admin: 01/20/25 20:34 Dose: 10 mg Documented By: Admin: 01/19/25 20:47 Dose: 10 mg Documented By: Admin: 01/18/25 20:15 Dose: 10 mg Documented By: Admin: 01/17/25 23:35 Dose: 10 mg Documented By: RK Amlodipine Besylate (Amlodipine Besylate 5 Mg Tab) 5 mg PO QPM NAHID Stop: 02/16/25 22:19 Last Admin: 01/22/25 20:17 Dose: 5 mg Documented By: Admin: 01/21/25 20:08 Dose: 5 mg Documented By: Admin: 01/20/25 20:34 Dose: Not Given Documented By: Admin: 01/19/25 20:47 Dose: 5 mg Documented By: Admin: 01/18/25 20:15 Dose: 5 mg Documented By: Admin: 01/17/25 23:35 Dose: 5 mg Documented By: RK Baclofen (Baclofen 10 Mg Tab) 10 mg PO TID NAHID Stop: 02/18/25 20:59 Last Admin: 01/20/25 14:16 Dose: 10 mg Documented By: Admin: 01/20/25 09:19 Dose: 10 mg Documented By: Admin: 01/19/25 20:47 Dose: 10 mg Documented By: KAEL Baclofen (Baclofen 20 Mg Tab) 20 mg PO TID ON LICENSE OF [facility] Stop: 02/19/25 20:59 Last Admin: 01/20/25 20:34 Dose: Not Given Documented By: GRANT Clonazepam (Clonazepam 0.5 Mg Tab) 0.5 mg PO TID ON LICENSE OF [facility] Stop: 02/21/25 08:59 Last Admin: 01/22/25 14:04 Dose: 0.5 mg Documented By: Admin: 01/22/25 08:36 Dose: 0.5 mg Documented By: DANIELLE Clonazepam (Clonazepam 0.5 Mg Tab) 0.5 mg PO BID ON LICENSE OF [facility] Stop: 02/21/25 20:59 Last Admin: 01/23/25 09:36 Dose: 0.5 mg Documented By: Admin: 01/22/25 20:21 Dose: 0.5 mg Documented By: MICHELLE Clonidine HCl (Clonidine Hcl 0.1 Mg Tab) 0.1 mg PO QAM ON LICENSE OF [facility] Stop: 02/17/25 08:59 Last Admin: 01/23/25 09:36 Dose: 0.1 mg Documented By: Admin: 01/22/25 08:33 Dose: 0.1 mg Documented By: Admin: 01/21/25 08:32 Dose: 0.1 mg Documented By: Admin: 01/20/25 09:19 Dose: 0.1 mg Documented By: Admin: 01/19/25 08:06 Dose: 0.1 mg Documented By: Admin: 01/18/25 09:59 Dose: 0.1 mg Documented By: Clonidine HCl (Clonidine Hcl 0.1 Mg Tab) 0.1 mg PO PRN PRN PRN Reason: SBP > 140 Stop: 02/17/25 15:54 Last Admin: 01/20/25 20:34 Dose: 0.1 mg Documented By: Admin: 01/18/25 16:01 Dose: 0.1 mg Documented By: Divalproex Sodium (Divalproex Extended Release 500 Mg Tab) 500 mg PO HS ON LICENSE OF [facility] Stop: 02/17/25 20:59 Last Admin: 01/18/25 20:15 Dose: 500 mg Documented By: KAEL Divalproex Sodium (Divalproex Extended Release 500 Mg Tab) 500 mg PO BID ON LICENSE OF [facility] Stop: 02/18/25 20:59 Last Admin: 01/20/25 20:35 Dose: Not Given Documented By: Admin: 01/20/25 09:19 Dose: 500 mg Documented By: Admin: 01/19/25 20:47 Dose: 500 mg Documented By: MMG Famotidine (Famotidine 20 Mg Tab) 20 mg PO HS NAHID Stop: 02/16/25 22:19 Last Admin: 01/22/25 20:21 Dose: 20 mg Documented By: Admin: 01/21/25 20:08 Dose: 20 mg Documented By: Admin: 01/20/25 20:38 Dose: 20 mg Documented By: Admin: 01/19/25 20:47 Dose: 20 mg Documented By: Admin: 01/18/25 20:15 Dose: 20 mg Documented By: Admin: 01/17/25 23:34 Dose: 20 mg Documented By: SJM Furosemide (Furosemide 20 Mg Tab) 20 mg PO Q48H NAHID Stop: 02/18/25 08:59 Last Admin: 01/23/25 09:36 Dose: 20 mg Documented By: AATaylor Admin: 01/21/25 08:32 Dose: 20 mg Documented By: Admin: 01/19/25 08:06 Dose: 20 mg Documented By: CANDE Hydralazine HCl (Hydralazine Hcl 20 Mg/Ml Vial) 5 mg IV NOW ONE Stop: 01/20/25 19:27 Last Admin: 01/20/25 19:34 Dose: 5 mg Documented By: GRANT Lactated Ringer's (Lr) 250 mls @ 999 mls/hr IV .Q16M ONE Stop: 01/18/25 09:16 Last Infusion: 01/18/25 09:32 Dose: Infused Documented By: Admin: 01/18/25 09:13 Dose: 999 mls/hr Documented By: Lactated Ringer's (Lr) 1,000 mls @ 110 mls/hr IV .Q9H6M NAHID Stop: 01/18/25 18:20 Last Infusion: 01/18/25 17:51 Dose: Infused Documented By: Admin: 01/18/25 09:58 Dose: 110 mls/hr Documented By: Lactated Ringer's (Lr) 1,000 mls @ 125 mls/hr IV .Q8H NAHID Stop: 01/22/25 09:59 Last Infusion: 01/22/25 09:50 Dose: Infused Documented By: Admin: 01/22/25 01:52 Dose: 125 mls/hr Documented By: Infusion: 01/22/25 01:52 Dose: Infused Documented By: Infusion: 01/21/25 18:18 Dose: 125 mls/hr Documented By: Infusion: 01/21/25 17:35 Dose: 0 mls/hr Documented By: Admin: 01/21/25 17:29 Dose: 125 mls/hr Documented By: BT Ioversol (Optiray 320 125ml) 120 ml IV ONCE ONE Stop: 01/18/25 09:44 Last Admin: 01/18/25 09:43 Dose: 120 ml Documented By: GENEVIEVE Lisinopril (Lisinopril 40 Mg Tab) 40 mg PO QAM ON LICENSE OF [facility] Stop: 02/17/25 08:59 Last Admin: 01/23/25 09:36 Dose: 40 mg Documented By: Admin: 01/22/25 08:33 Dose: 40 mg Documented By: Admin: 01/21/25 08:31 Dose: 40 mg Documented By: Admin: 01/20/25 09:19 Dose: 40 mg Documented By: Admin: 01/19/25 08:06 Dose: 40 mg Documented By: Admin: 01/18/25 09:59 Dose: 40 mg Documented By: Lorazepam (Lorazepam 2 Mg/1 Ml Vial) 1 mg IV NOW STA Stop: 01/17/25 18:27 Last Admin: 01/17/25 18:41 Dose: 1 mg Documented By: VERNON Lorazepam (Lorazepam 2 Mg/1 Ml Vial) 1 mg IV Q8H PRN PRN Reason: Anxiety/Agitation Stop: 02/16/25 22:19 Last Admin: 01/20/25 20:28 Dose: 1 mg Documented By: GRANT Melatonin (Melatonin 3 Mg Tab) 3 mg PO HS PRN PRN Reason: Sleep Stop: 02/16/25 22:19 Last Admin: 01/17/25 23:34 Dose: 3 mg Documented By: SJSilverio Miscellaneous (Dapagliflozin Propanediol [Farxiga]: Order Awaiting Action) 1 each N/A QS ON LICENSE OF [facility] Stop: 02/17/25 07:59 Last Admin: 01/19/25 08:06 Dose: Not Given Documented By: Admin: 01/19/25 00:19 Dose: Not Given Documented By: Admin: 01/18/25 16:33 Dose: Not Given Documented By: Admin: 01/18/25 08:59 Dose: Not Given Documented By: ENS Ondansetron HCl (Ondansetron Inj 2 Mg/Ml 2 Ml Vial) 4 mg IV Q6H PRN PRN Reason: Nausea And Vomiting Stop: 02/16/25 22:19 Last Admin: 01/20/25 18:16 Dose: 4 mg Documented By: BT Description This is a 21 electrode EEG with a single channel dedicated to limited EKG. The electrodes were placed in accordance with the International 10-20 system. There is a posterior dominant rhythm of 9 to 10 Hz which is symmetrically distributed and attenuates with eye opening. There is a normal anterior to posterior organization. Photic stimulation is unremarkable. Hyperventilation is not performed. There is a symmetric frontal beta rhythm. There is no focal slowing. There are no epileptiform abnormalities. Interpretation Normal-appearing awake/drowsy EEG. [facility] EEG Procedure Codes Indication for Procedure (1) Episode of transient neurologic symptoms: (2) Recurrent episodes of unresponsiveness: (3) Seizure-like activity: Neurology Neurology: 21743 EEG include record awake & drowsy
== END 2025-01-23 14:00 | disposition home or self-care (01) | DRG 125 ==
LOC: ED 18:19 → 2S 18:19 → SUATTDRO 21:02 → 2S 21:53